=== PATIENT | female | born 1980 | race Caucasian/White ===

== ENCOUNTER 2016-12-09 22:14 | Emergency (ER) | payer MEDICAID, OTHER ==
--- NOTE | 2016-12-09 22:25 | ERNOTE ---
Medical Problem HPI - General Time Seen by Provider: 12/09/16 22:18 Source: patient Exam Limitations: clinical condition - Immun/Allergies/Home Medications Allergies/Adverse Reactions: Allergies No Known Allergies Allergy (Unverified 12/09/16 23:13) Home Medications: HOME MEDICATIONS Unobtainable 12/09/16 [Last Taken Unknown] - History of Present History Narrative: pt dropped off at the ED door by friends due to decreased mental status. Pt has difficulty answering any questions even her date. Speech is very slurred and slow and pt is resistant to any assistance. We were able to get the patient on the ER cot and get a finger stick blood sugar that read >500. Timing: getting worse Severity: severe Review of Systems - Narrative Narrative: Pt unable to give any history - Patient's Past Medical History Patient History - Medical: Diabetes Type 1 Physical Exam - Physical Exam General Appearance: Present: lethargic, irritable Head Exam: Present: normal inspection, no evidence of injury Eye Exam: Normal inspection: bilateral, PERRL: bilateral Ears, Nose, Throat: Present: dry mucous membranes Neck: Present: normal inspection, supple, full range of motion Respiratory: Present: no respiratory distress, no accessory muscle use Cardiovascular/Chest: Present: regular rate, rhythm, no murmur Gastrointestinal/Abdominal: Present: nondistended, soft Back Exam: Present: normal inspection, normal range of motion Extremity Exam: Present: normal range of motion, no edema Neurological Exam: Present: disoriented to time, disoriented to place, disoriented to situation Skin Exam: Present: normal color, warm/dry, other - scattered scabs on arms and legs. Moderate amount of small bruises on extremities. Lymphatic Exam: Present: no adenopathy ED Progress - Results and Orders Patient's Lab Results:: I have reviewed the patient's lab results. - Vital Signs Patient's Vital Signs:: I have reviewed the patient's vital signs. - EKG EKG: NSR EKG read: Interp. by me - Progress/Reassessment Progress Note-Subjective: 12/09/16 23:45 reviewed labs and spoke with Mary Kate SEPULVEDA hospitalist. She will see the patient in the ED. 12/10/16 00:38 We are unable to keep the patient here due to insufficient nursing staff to handle the patient. Spoke with Dr. Glasgow at [facility]. She spoke with the hospitalist and called back saying they would accept the patient. Departure - Departure Clinical Impression: DKA (diabetic ketoacidoses) Qualifiers: Diabetes mellitus type: type 1 Diabetes mellitus complication detail: with coma Qualified Code(s): E10.11 - Type 1 diabetes mellitus with ketoacidosis with coma Disposition: [facility] Condition: Serious
[2016-12-09 22:39] LABS: Hematocrit 42.3 % (37.0-47.0); Mean Corpuscular Hgb Conc 30.7 g/dl (32-36); Mean Platelet Volume 10.9 fl (6.0-9.5); Platelet Count 320 K/mm3 (150-450); Red Blood Count 4.19 M/mm3 (4.2-5.4); Red Cell Distribution Width 13.4 % (11.5-14.0); White Blood Count 34.5 K/mm3 (4.0-10.5)
[2016-12-09] MEDS ORDERED: NORMAL SALINE 1,000 ML IV ONE ×3 (22:39→23:44)
[2016-12-09 22:43] LABS: Total Cells Counted 100
[2016-12-09 22:52] LABS: ALT 35 U/L (19-67); AST 18 U/L (0-48); Albumin * 4.2 gm/dl (3.4-5.0); Alkaline Phosphatase * 184 U/L (50-170); Anion Gap 43.9 mmol/L (6.8-13.8); BUN/Creatinine Ratio 12.5 (9.0-21.6); Bilirubin, Total 0.6 mg/dL (0.0-1.1); Blood Urea Nitrogen 28 mg/dL (3-23); Ca. Corrected For Albumin 8.8 mg/dL (8.4-10.2); Calcium * 9.3 mg/dL (7.9-10.9); Chloride 90 mmol/L (97-106); Potassium 5.9 mmol/L (3.4-4.6); Sodium 133 mmol/L (132-142); Total Protein 7.7 gm/dL (6.2-8.2)
[2016-12-09 22:55] LABS: Glucose * 1010 mg/dL (70-110)
[2016-12-09 23:04] LABS: Neutrophil 72 % (42-75)
[2016-12-09 23:05] LABS: Band 2 % (0-2.0); Lymphocyte 18 % (20-51); Monocyte 8 % (0-9); Neutrophil # 24.8 K/mm3 (1.3-6.0); Platelet Estimate Normal (NORMAL)
[2016-12-09 23:06] LABS: Dohle Bodies 1+; RBC Morphology SEE NO (NORMAL)
[2016-12-09 23:07] LABS: Toxic Granulation 2+
[2016-12-09 23:15] LABS: Urine Appearance Clear; Urine Bacteria 1+; Urine Bilirubin Negative (NEGATIVE); Urine Blood 50 /ul (NEGATIVE); Urine Color Yellow; Urine Ketone Large mg/dL (NEGATIVE); Urine Nitrite Negative (NEGATIVE); Urine Protein Negative (NEGATIVE); Urine RBC 0-5 /hpf (0-5); Urine Specific Gravity 1.015 SP.GR. (1.005-1.010); Urine Urobilinogen Normal (NORMAL); Urine WBC TRACE /hpf (0-5); Urine pH 5.5 pH (5.0-7.0)
[2016-12-09 23:26] LABS: Cocaine Ur Negative (NEGATIVE); Urine Barbiturate Negative (NEGATIVE); Urine Benzodiazepines Negative (NEGATIVE); Urine Opiates Negative (NEGATIVE); Urine PCP Negative (NEGATIVE); Urine THC Negative (NEGATIVE)
[2016-12-09] MEDS ORDERED: INSULIN REGULAR HUMAN REC 100 UNITS in NORMAL SALINE 100 ML IV PRN (23:36)
[2016-12-09] MEDS ORDERED: INSULIN REGULAR, HUMAN 100 UNITS/ML VIAL IV ONE (23:36)
[2016-12-09] MEDS ORDERED: INSULIN REGULAR, HUMAN 100 UNITS/ML VIAL ONE (23:48)
[2016-12-10 00:44] VITALS: BP 105/57
== END 2016-12-10 01:06 | disposition short-term general hospital (02) ==
LOC: ER 22:14
PROC: 4A033R1 Measurement of Arterial Saturation, Peripheral, Percutaneous Approach (ICD-10-PCS; principal; 2016-12-09)
DX: E10.11 Type 1 diabetes mellitus with ketoacidosis with coma (principal)
CPT/HCPCS: 36415; 36600; 71010; 80053; 80307; 81001; 82803; 85025; 93005; 94762; 96365; 96375; 99284; G0481

== ENCOUNTER 2017-02-16 15:49 | Inpatient (IN) | payer OTHER ==
--- NOTE | 2017-02-16 16:36 | ERNOTE ---
Abdominal HPI - General Chief Complaint: Abdominal Pain Time Seen by Provider: 02/16/17 16:25 Source: patient Exam Limitations: no limitations - Immun/Allergies/Home Medications Immunizatons: IMMUNIZATION HX Immunizations Up to Date unknown History of Influenza Vaccine No Hx Pneumococcal Vaccination No Allergies/Adverse Reactions: Allergies No Known Allergies Allergy (Verified 02/16/17 15:57) Home Medications: HOME MEDICATIONS Unobtainable 12/09/16 [Last Taken Unknown] - History of Present Illness Narrative: Patient is a type1 diabetic that has been out of insulin for 3-4 days.She can't explain how that happened. She last smoked meth a week ago, still smoking pot and cigarretttes. She started to vomit about three days ago, no diarrhea, but abdominal pain Timing: constant Quality: moderate, aching - Patient's Past Medical History Patient History - Medical: Diabetes Type 1 Patient History - Cardiac/Respiratory: Asthma Patient History - Cancer: No Hx of Cancer Patient History - Surgical Procedures: No surgical history Patient History - Other: None - Social History Living Situations: home Abuse History: Hx of Substance Use Smoking Status: Current every day smoker Alcohol Use: none Drug Use: none - Immunizations Immunizations Up to Date: - unknown Hx Pneumococcal Vaccination: No History of Influenza Vaccine: No Physical Exam - Physical Exam General Appearance: Present: wd/wn, alert, no apparent distress, thin Head Exam: Present: normal inspection Ears, Nose, Throat: Present: dry mucous membranes Respiratory: Present: no respiratory distress, normal breath sounds, no accessory muscle use, lungs clear Cardiovascular/Chest: Present: regular rate, rhythm, no murmur Gastrointestinal/Abdominal: Present: normal bowel sounds, nontender, nondistended, soft Extremity Exam: Present: no edema Neurological Exam: Present: alert, oriented, normal mood/affect Skin Exam: Present: normal color, warm/dry ED Progress - Results and Orders Patient's Lab Results:: I have reviewed the patient's lab results. - Vital Signs Patient's Vital Signs:: I have reviewed the patient's vital signs. Vital Signs: Vital Signs 02/16/17 15:50 Temperature 36.4 C L Pulse Rate 102 H Respiratory 12 Rate Blood Pressure 121/62 O2 Sat by Pulse 100 Oximetry - X-Ray X-Ray #1 X-Ray: chest - no acute findings Interpretation: Interp. by me X-Ray #2 X-Ray: abdomen - normal gas pattern, a lot of stool Interpretation: Reviewed by me - Progress/Reassessment Chief Complaint: Abdominal Pain Progress Note-Subjective: 02/16/17 17:31 patient feeling slightly better, discussed diagnosis of DKA, asking for ice chips 02/16/17 18:54 repeat fingerstick glucose >500, plasma pending 02/16/17 19:18 patient resting, no vomiting 02/16/17 19:21 message to hospitalist 02/16/17 19:33 discussed with Bernadine (hospitalist DIRECTOR OF COLLECTIONS AND ARCHIVES), okay to admit, will need to check on bed 02/16/17 19:50 okay to admit Departure Clinical Impression: DKA (diabetic ketoacidoses) Qualifiers: Diabetes mellitus type: type 1 Diabetes mellitus complication detail: without coma Qualified Code(s): E10.10 - Type 1 diabetes mellitus with ketoacidosis without coma - Departure Disposition: [facility] Condition: Stable
[2017-02-16] MEDS: NORMAL SALINE 1,000 ML IV ONE ×4 (16:50→23:22)
[2017-02-16 16:51] LABS: Hematocrit 44.9 % (37.0-47.0); Hemoglobin 13.5 gm/dL (12.5-16.0); Mean Cell Volume 105.2 fl (78-100); Mean Corpuscular Hemoglobin 31.6 pg (27-31); Mean Corpuscular Hgb Conc 30.1 g/dl (32-36); Mean Platelet Volume 10.5 fl (6.0-9.5); Platelet Count 437 K/mm3 (150-450); Red Blood Count 4.27 M/mm3 (4.2-5.4); Red Cell Distribution Width 13.8 % (11.5-14.0); White Blood Count 34.2 K/mm3 (4.0-10.5)
[2017-02-16 17:06] LABS: BUN/Creatinine Ratio 19.5 (9.0-21.6); Blood Urea Nitrogen 42 mg/dL (3-23); Chloride 85 mmol/L (97-106); Sodium 130 mmol/L (132-142)
[2017-02-16 17:07] LABS: ALT 84 U/L (19-67); AST 38 U/L (0-48); Albumin * 3.8 gm/dl (3.4-5.0); Alkaline Phosphatase * 186 U/L (50-170); Amylase * 77 U/L (25-115); Bilirubin, Total 0.5 mg/dL (0.0-1.1); Ca. Corrected For Albumin 9.4 mg/dL (8.4-10.2); Calcium * 9.6 mg/dL (7.9-10.9); Lipase 171 U/L (73-393); Total Protein 8.3 gm/dL (6.2-8.2)
[2017-02-16] MEDS ORDERED: ONDANSETRON HCL/PF 2 MG/ML VIAL IV ONE (17:18)
[2017-02-16 17:20] LABS: Total Cells Counted 100
[2017-02-16] MEDS ORDERED: INSULIN REGULAR, HUMAN 100 UNITS/ML VIAL IV ONE (17:26)
[2017-02-16 17:29] LABS: Glucose * 811 mg/dL (70-110)
[2017-02-16] MEDS ORDERED: INSULIN REGULAR, HUMAN 100 UNITS/ML VIAL ONE (17:42)
[2017-02-16 17:43] LABS: Immature Granulocyte 10 (0-1); Lymphocyte 31 % (20-51); Monocyte 5 % (0-9); Neutrophil 54 % (42-75); Neutrophil # 18.5 K/mm3 (1.3-6.0)
[2017-02-16 17:45] LABS: Platelet Estimate Increased (NORMAL); RBC Morphology Normal (NORMAL)
[2017-02-16 17:46] LABS: Dohle Bodies 1+; Toxic Granulation 3+
[2017-02-16] MEDS: INSULIN REGULAR HUMAN REC 100 UNITS in NORMAL SALINE 100 ML IV PRN ×2 (17:54→23:45)
[2017-02-16] MEDS ORDERED: ALBUTEROL SULFATE 2.5 MG/0.5 ML VIAL.NEB IH ONE ×2 (18:15→18:18)
[2017-02-16] MEDS ORDERED: ACETAMINOPHEN 500 MG TABLET PO ONE (18:54)
[2017-02-16] MEDS ORDERED: NORMAL SALINE 1,000 ML IV ONE ×5 (18:54→23:20)
[2017-02-16 19:12] LABS: Urine Bilirubin Negative (NEGATIVE); Urine Blood 250 /ul (NEGATIVE); Urine Ketone Large mg/dL (NEGATIVE); Urine Nitrite Negative (NEGATIVE); Urine Protein 30 mg/dL (NEGATIVE); Urine Specific Gravity 1.025 SP.GR. (1.005-1.010); Urine Urobilinogen Normal (NORMAL); Urine pH 5.5 pH (5.0-7.0)
[2017-02-16 19:23] LABS: Cocaine Ur Negative (NEGATIVE); Urine Barbiturate Negative (NEGATIVE); Urine Benzodiazepines Negative (NEGATIVE); Urine Opiates Negative (NEGATIVE); Urine PCP Negative (NEGATIVE)
[2017-02-16 19:27] LABS: Urine Appearance Clear; Urine Color Yellow; Urine WBC 0-5 /hpf (0-5)
[2017-02-16 19:28] LABS: Urine Bacteria 1+
[2017-02-16 19:43] LABS: Urine THC Positive (NEGATIVE)
[2017-02-16 21:00] LABS: Anion Gap 37.5 mmol/L (6.8-13.8); BUN/Creatinine Ratio 22.2 (9.0-21.6); Calcium * 8.1 mg/dL (7.9-10.9); Estimated Creat Clear 38.9; Phosphorus 6.5 mg/dL (2.2-4.2); Potassium 4.5 mmol/L (3.4-4.6)
[2017-02-16] MEDS ORDERED: ONDANSETRON HCL/PF 2 MG/ML VIAL IV PRN (21:10)
[2017-02-16] MEDS ORDERED: BISACODYL 10 MG SUPP.RECT RC ONE (21:10)
[2017-02-16] MEDS: NICOTINE 21 MG PATC TD SCH (21:13)
--- NOTE | 2017-02-16 21:13 | HP ---
Chief Complaint - Chief Complaint Date of Service: 02/16/17 Time of Service: 20:52 Chief Complaint: DKA, Abdominal pain, vomiting History of Present Illness: 37 years old WF adm to the unit with DKA, dehydration and substance abuse. PMH significant for Diabetes I, substance abuse and hypothyriodism. pt stated she has been out of insulin x1 week and has not been seen by her PCP. She got her last prescription for insulin when she was at the ER. Todays she was having increased nausea, vomiting and abdominal pain so she came to the ER. She denies fever, chills, diarrhea and shortness of breath.In ER Blood glucose 811, acidosis with a venous PH 6.9 and CO2 <5.she tested positive for marijuana. 4unit humulin R given and insulin drip initiated. CXR: No acute cardiopulmonary process. X-ray ABD: Stool retention. Plan of care discussed with pt she verbalized understanding and agree - Patient's Past Medical History Patient History - Medical: Diabetes Type 1 Patient History - Cardiac/Respiratory: Asthma Patient History - Cancer: No Hx of Cancer Patient History - Surgical Procedures: Cholecystectomy, Other - carpal tunnel Patient History - Other: None LMP (females 10-50): unknown - Family History Mother Family History - Medical: No pertinent hx Family History - Cardiac/Respiratory: No pertinent hx Family History - Cancer: History Unknown Father Family History - Cardiac/Respiratory: COPD - Social History Living Situations: home Abuse History: Hx of Substance Use Psych History: No pertinent hx Smoking Status: Current every day smoker Have you smoked in the past 12 months: Yes Do you dip or chew tobacco: No Patient requests Smoking Cessation Consult: No Initiate information on Smoking Cessation: Yes Alcohol Use: occasionally Drug Use: marijuana, meth - Immunizations Immunizations Up to Date: - unknown Hx Pneumococcal Vaccination: No History of Influenza Vaccine: No Review Of Systems (GEN) - Review of Systems Generalized/Overall Review: Present: Malaise, Fatigue EENTM: Present: No Symptoms Reported Cardiac: Present: No Symptoms Reported Abdominal: Present: Nausea, Vomiting, Abdominal Pain Genitourinary: Present: No Symptoms Reported Musculoskeletal: Present: No Symptoms Reported Neurological: Present: No Symptoms Reported Skin: Present: Dryness Endocrine: Present: No Symptoms Reported, Increased Thirst Immunizations: IMMUNIZATION HX Immunizations Up to Date unknown History of Influenza Vaccine No Hx Pneumococcal Vaccination No Allergies/Adverse Reactions: Allergies Allergy/AdvReac Type Severity Reaction Status Date / Time No Known Allergies Allergy Verified 02/16/17 15:57 Home Medications: HOME MEDICATIONS RX: Unobtainable 12/09/16 [Last Taken Unknown] Exam - Exam Vital Signs: Vital Signs - Last Taken Temp 36.5 C 02/16/17 20:37 Pulse 106 H 02/16/17 20:38 Resp 18 02/16/17 20:37 BP 120/74 02/16/17 20:37 Pulse Ox 100 02/16/17 20:37 Constitutional: Present: Alert, Oriented x3, Cooperative, No distress, Looks Older than stated age ENT Exam: Present: hearing grossly normal Eye Exam: bilateral eye: normal inspection Neck: Present: full range of motion Back Exam: Present: normal inspection Breasts: Present: Exam deferred Respiratory: Present: chest non-tender, normal breath sounds, no respiratory distress, decreased breath sounds, No wheezing Cardiovascular/Chest: Present: normal peripheral pulses, no chest tenderness, no edema, tachycardia Peripheral Pulses: dorsalis-pedis (R): 3+, dorsalis-pedis (L): 3+ Abdomen: Present: Normal bowel sounds, soft, nontender, nondistended, no rebound tenderness /Rectal: Present: Exam deferred Extremity: Present: normal range of motion, non-tender, normal inspection, no pedal edema Skin Exam: Present: warm/dry Neurologic: Present: oriented x 3 Appearance: Present: appropriate appearance, disheveled Eye contact: Present: cooperative, good eye contact Thoughts: Present: normal thought pattern, no apparent hallucination Diagnostic Studies: Laboratory Results WBC 34.2 K/mm3 (4.0-10.5) H 02/16/17 16:45 RBC 4.27 M/mm3 (4.2-5.4) 02/16/17 16:45 Hgb 13.5 gm/dL (12.5-16.0) 02/16/17 16:45 Hct 44.9 % (37.0-47.0) 02/16/17 16:45 MCV 105.2 fl (78-100) H 02/16/17 16:45 MCH 31.6 pg (27-31) H 02/16/17 16:45 MCHC 30.1 g/dl (32-36) L 02/16/17 16:45 RDW 13.8 % (11.5-14.0) 02/16/17 16:45 Plt Count 437 K/mm3 (150-450) 02/16/17 16:45 MPV 10.5 fl (6.0-9.5) H 02/16/17 16:45 Neutrophils % (Manual) 54 % (42-75) 02/16/17 16:45 Lymphocytes % (Manual) 31 % (20-51) 02/16/17 16:45 Monocytes % (Manual) 5 % (0-9) 02/16/17 16:45 Immature Granulocytes 10 (0-1) H 02/16/17 16:45 Neutrophils # (Manual) 18.5 K/mm3 (1.3-6.0) H 02/16/17 16:45 Lymphocytes # (Manual) 10.6 k/mm3 (1.5-3.5) H 02/16/17 16:45 Monocytes # (Manual) 1.7 k/mm3 (0.0-1.0) H 02/16/17 16:45 Toxic Granulation 3+ 02/16/17 16:45 Toxic Vacuolation 1+ 02/16/17 16:45 Dohle Bodies 1+ 02/16/17 16:45 Platelet Estimate Increased (NORMAL) H 02/16/17 16:45 RBC Morphology Normal (NORMAL) 02/16/17 16:45 Sparkill Cells 1+ 02/16/17 16:45 VBG pH 6.911 (7.32-7.43) L* 02/16/17 16:45 Sodium 130 mmol/L (132-142) L 02/16/17 16:45 Plasma Sodium 141 mmol/L (130-142) 02/16/17 16:45 Potassium 5.0 mmol/L (3.4-4.6) H 02/16/17 16:45 Chloride 85 mmol/L (97-106) L 02/16/17 16:45 Carbon Dioxide Less than 5.0 mmol/L (24-32.6) L 02/16/17 16:45 Anion Gap 45.0 mmol/L (6.8-13.8) H 02/16/17 16:45 BUN 42 mg/dL (3-23) H 02/16/17 16:45 Creatinine 2.15 mg/dL (0.4-1.4) H 02/16/17 16:45 Est GFR (Non-Af Amer) 28 mL/min (60-130) L 02/16/17 16:45 BUN/Creatinine Ratio 19.5 (9.0-21.6) 02/16/17 16:45 Random Glucose 810 mg/dL (70-110) H* 02/16/17 18:52 Calcium 9.6 mg/dL (7.9-10.9) 02/16/17 16:45 Calcium Adj for Albumin 9.4 mg/dL (8.4-10.2) 02/16/17 16:45 Total Bilirubin 0.5 mg/dL (0.0-1.1) 02/16/17 16:45 AST 38 U/L (0-48) 02/16/17 16:45 ALT 84 U/L (19-67) H 02/16/17 16:45 Alkaline Phosphatase 186 U/L (50-170) H 02/16/17 16:45 Total Protein 8.3 gm/dL (6.2-8.2) H 02/16/17 16:45 Albumin 3.8 gm/dl (3.4-5.0) 02/16/17 16:45 Amylase 77 U/L (25-115) 02/16/17 16:45 Lipase 171 U/L (73-393) 02/16/17 16:45 Serum HCG, Qual Negative (NEGATIVE) 02/16/17 16:45 Urine Color Yellow 02/16/17 18:52 Urine Appearance Clear 02/16/17 18:52 Urine pH 5.5 pH (5.0-7.0) 02/16/17 18:52 Ur Specific Golden 1.025 SP.GR. (1.005-1.010) 02/16/17 18:52 Urine Protein 30 mg/dL (NEGATIVE) H 02/16/17 18:52 Urine Glucose (UA) >=1000 mg/dL (NEGATIVE) H 02/16/17 18:52 Urine Ketones Large mg/dL (NEGATIVE) 02/16/17 18:52 Urine Blood 250 /ul (NEGATIVE) H 02/16/17 18:52 Urine Nitrate Negative (NEGATIVE) 02/16/17 18:52 Urine Bilirubin Negative mg/dl (NEGATIVE) 02/16/17 18:52 Prot Sulfosalicylic Acd Negative mg/dL (0) 02/16/17 18:52 Urine Urobilinogen Normal EU/dl (NORMAL) 02/16/17 18:52 Ur Leukocyte Esterase Negative /ul (NEGATIVE) 02/16/17 18:52 Urine RBC 10-25 /hpf (0-5) H 02/16/17 18:52 Urine WBC 0-5 /hpf (0-5) 02/16/17 18:52 Ur Epithelial Cells >25 /hpf (0-5) H 02/16/17 18:52 Urine Bacteria 1+ (NONE) H 02/16/17 18:52 Hyaline Casts 10-25 /LPF (NONE) H 02/16/17 18:52 Urine Culture Comments No culture indicated 02/16/17 18:52 Urine Opiates Screen Negative (NEGATIVE) 02/16/17 18:52 Barbiturate Screen Negative (NEGATIVE) 02/16/17 18:52 Ur Phencyclidine Scrn Negative (NEGATIVE) 02/16/17 18:52 Urine Amphetamine Negative (NEGATIVE) 02/16/17 18:52 U Benzodiazepines Scrn Negative (NEGATIVE) 02/16/17 18:52 Urine Cocaine Screen Negative (NEGATIVE) 02/16/17 18:52 Urine Marijuana (THC) Positive (NEGATIVE) H 02/16/17 18:52 Ethyl Alcohol Less than 3.0 mg/dL (0.0-10.0) 02/16/17 16:45 Serum Ketones Positive - 30mg/dl (NEGATIVE) H 02/16/17 16:45 X-Ray ABD: Stool retention with non-obstruction bowel gas pattern Assessment/Plan - Narrative Narrative: Diabetic ketoacidosis- likely due to noncompliance pt stated she has been out of insulin x 1 week She had her last prescription from the ER and has not been following up with PCP. In ER BG 811--->810---->652 4Unit insulin bolus and Insulin drip started Aggressive IV fluid with Ns 0.9% 1L until adequate diuresis to correct 50% of the volume deficit. 2L NS bolus given in ER, will give additional IVF On adm PH 6.9, co2 <5, Bun/Cre 42/2.15, Na+130, K+5, serum ketones 30mg/dl, WBC 34 and A1c 13 Monitor BMP Q2hr, neuro check Mag,phos q6hrs pending Keep NPO for now and Monitor weight and strict I/O Diabetes type I Plan same as above Dehydration Continue with IVF resuscitation On adm BUn/Cre 42/2.15 Substance abuse pt stated she smoke marijuana daily and urine + for drugs Last used meth 4 days ago, but typically uses 4 times weekly. Smoking cessation edu and nicotine patch Asthma May resume home albuterol constipation Dulcolax suppository Code status: Full GI ppx:protonix VTE ppx: Ambulate and SCD Time 50 minutes, previous records reviewed and case discussed with Dr mitchell - Assessment/Plan (1) Substance abuse Problem: Chronic (2) DKA (diabetic ketoacidoses) Problem: Acute Qualifiers: Diabetes mellitus type: type 1 Diabetes mellitus complication detail: without coma Qualified Code(s): E10.10 - Type 1 diabetes mellitus with ketoacidosis without coma (3) Diabetes 1.5, managed as type 1 Problem: Chronic (4) Hypothyroidism Problem: Chronic (5) Constipation Problem: Acute
[2017-02-16] MEDS: REMOVE PATCH 1 PATCH PATCH TP SCH (21:14)
[2017-02-16 23:09] LABS: Anion Gap 34.7 mmol/L (6.8-13.8); Calcium * 7.6 mg/dL (7.9-10.9); Carbon Dioxide 6.9 mmol/L (24-32.6); Estimated Creat Clear 42.5; Potassium 4.6 mmol/L (3.4-4.6)
[2017-02-17 01:19] LABS: BUN/Creatinine Ratio 18.3 (9.0-21.6); Calcium * 7.4 mg/dL (7.9-10.9); Carbon Dioxide 7.8 mmol/L (24-32.6); Estimated Creat Clear 44.8; Potassium 4.8 mmol/L (3.4-4.6)
[2017-02-17] MEDS ORDERED: NORMAL SALINE 1,000 ML IV PRN (01:27)
[2017-02-17 03:08] LABS: Anion Gap 33.9 mmol/L (6.8-13.8); BUN/Creatinine Ratio 17.2 (9.0-21.6); Calcium * 7.5 mg/dL (7.9-10.9); Estimated Creat Clear 45.1; Potassium 4.9 mmol/L (3.4-4.6)
[2017-02-17 04:55] LABS: Hemoglobin 11.7 gm/dL (12.5-16.0); Mean Cell Volume 98.6 fl (78-100); Mean Corpuscular Hemoglobin 32.1 pg (27-31); Mean Corpuscular Hgb Conc 32.5 g/dl (32-36); Mean Platelet Volume 9.8 fl (6.0-9.5); Platelet Count 289 K/mm3 (150-450); Red Blood Count 3.65 M/mm3 (4.2-5.4); Red Cell Distribution Width 13.4 % (11.5-14.0); White Blood Count 26.1 K/mm3 (4.0-10.5)
[2017-02-17 05:08] LABS: Anion Gap 32.5 mmol/L (6.8-13.8); BUN/Creatinine Ratio 18.2 (9.0-21.6); Calcium * 7.4 mg/dL (7.9-10.9); Carbon Dioxide 5.9 mmol/L (24-32.6); Estimated Creat Clear 49.7; Magnesium 1.6 mg/dL (1.2-2.8); Phosphorus 3.4 mg/dL (2.2-4.2); Potassium 4.4 mmol/L (3.4-4.6)
[2017-02-17 05:12] LABS: Total Cells Counted 100
[2017-02-17] MEDS: NORMAL SALINE 1,000 ML IV PRN ×2 (05:36→09:56)
[2017-02-17 05:41] LABS: Band 3 % (0-2.0); Immature Granulocyte 1 (0-1); Lymphocyte 13 % (20-51); Monocyte 6 % (0-9); Neutrophil 77 % (42-75); Neutrophil # 20.1 K/mm3 (1.3-6.0); Platelet Estimate Normal (NORMAL)
[2017-02-17 05:43] LABS: RBC Morphology Normal (NORMAL)
[2017-02-17 05:44] LABS: Dohle Bodies 1+; Toxic Granulation 2+
--- NOTE | 2017-02-17 06:57 | PN ---
Subjective - Date and Time Seen Date: 02/17/17 Time: 06:53 Subjective Narrative: patient seen today AOX3 no acute distress, stated she urinated and eat some ice chips only. However male visitor at the bedside gave her food overnight.Plan of care discussed with pt she verbalized understanding and agree. Objective - Review of Systems Generalized/Overall Review: Reports: No Symptoms Reported EENTM: Reports: No Symptoms Reported Respiratory: Reports: No Symptoms Reported Cardiac: Reports: No Symptoms Reported Abdominal: Reports: No Symptoms Reported Genitourinary Symptoms: Reports: No Symptoms Reported Musculoskeletal Complaints: Reports: No Symptoms Reported Neurological: Reports: No Symptoms Reported Skin: Reports: No Symptoms Reported Endocrine: Reports: Increased Thirst - Vitals Vitals: Last Vital Signs Temp 36.4 C L 02/17/17 06:00 Pulse 100 02/17/17 06:44 Resp 16 02/17/17 06:00 BP 106/60 02/17/17 06:00 Pulse Ox 98 02/17/17 06:00 - Abnormal Lab Findings Abnormal Lab Findings: Abnormal Lab Results 02/16/17 02/16/17 02/16/17 Range/Units 20:40 20:40 21:50 WBC (4.0-10.5) K/mm3 RBC (4.2-5.4) M/mm3 Hgb (12.5-16.0) gm/dL Hct (37.0-47.0) % MCH (27-31) pg MPV (6.0-9.5) fl Neutrophils % (Manual) (42-75) % Band Neuts % (Manual) (0-2.0) % Lymphocytes % (Manual) (20-51) % Neutrophils # (Manual) (1.3-6.0) K/mm3 Monocytes # (Manual) (0.0-1.0) k/mm3 Plasma Sodium (130-142) mmol/L Potassium (3.4-4.6) mmol/L Chloride 94 L (97-106) mmol/L Carbon Dioxide 6.0 L (24-32.6) mmol/L Anion Gap 37.5 H (6.8-13.8) mmol/L BUN 42 H (3-23) mg/dL Creatinine 1.89 H (0.4-1.4) mg/dL Est GFR (Non-Af Amer) 32 L (60-130) mL/min BUN/Creatinine Ratio 22.2 H (9.0-21.6) Random Glucose 652 H* 613 H* (70-110) mg/dL Hemoglobin A1c 13.0 H (4.00-6.0) % Calcium (7.9-10.9) mg/dL Phosphorus 6.5 H (2.2-4.2) mg/dL 02/16/17 02/17/17 02/17/17 Range/Units 22:45 00:40 02:55 WBC (4.0-10.5) K/mm3 RBC (4.2-5.4) M/mm3 Hgb (12.5-16.0) gm/dL Hct (37.0-47.0) % MCH (27-31) pg MPV (6.0-9.5) fl Neutrophils % (Manual) (42-75) % Band Neuts % (Manual) (0-2.0) % Lymphocytes % (Manual) (20-51) % Neutrophils # (Manual) (1.3-6.0) K/mm3 Monocytes # (Manual) (0.0-1.0) k/mm3 Plasma Sodium 143 H 146 H 147 H (130-142) mmol/L Potassium 4.8 H 4.9 H (3.4-4.6) mmol/L Chloride (97-106) mmol/L Carbon Dioxide 6.9 L 7.8 L 7.0 L (24-32.6) mmol/L Anion Gap 34.7 H 33.0 H 33.9 H (6.8-13.8) mmol/L BUN 38 H 30 H 28 H (3-23) mg/dL Creatinine 1.73 H 1.64 H 1.63 H (0.4-1.4) mg/dL Est GFR (Non-Af Amer) 36 L 38 L 38 L (60-130) mL/min BUN/Creatinine Ratio 22.0 H (9.0-21.6) Random Glucose 530 H* 474 H 474 H (70-110) mg/dL Hemoglobin A1c (4.00-6.0) % Calcium 7.6 L 7.4 L 7.5 L (7.9-10.9) mg/dL Phosphorus (2.2-4.2) mg/dL 02/17/17 02/17/17 Range/Units 04:50 04:50 WBC 26.1 H D (4.0-10.5) K/mm3 RBC 3.65 L (4.2-5.4) M/mm3 Hgb 11.7 L (12.5-16.0) gm/dL Hct 36.0 L (37.0-47.0) % MCH 32.1 H (27-31) pg MPV 9.8 H (6.0-9.5) fl Neutrophils % (Manual) 77 H (42-75) % Band Neuts % (Manual) 3 H (0-2.0) % Lymphocytes % (Manual) 13 L (20-51) % Neutrophils # (Manual) 20.1 H (1.3-6.0) K/mm3 Monocytes # (Manual) 1.6 H (0.0-1.0) k/mm3 Plasma Sodium 145 H (130-142) mmol/L Potassium (3.4-4.6) mmol/L Chloride (97-106) mmol/L Carbon Dioxide 5.9 L (24-32.6) mmol/L Anion Gap 32.5 H (6.8-13.8) mmol/L BUN 27 H (3-23) mg/dL Creatinine 1.48 H (0.4-1.4) mg/dL Est GFR (Non-Af Amer) 43 L (60-130) mL/min BUN/Creatinine Ratio (9.0-21.6) Random Glucose 450 H (70-110) mg/dL Hemoglobin A1c (4.00-6.0) % Calcium 7.4 L (7.9-10.9) mg/dL Phosphorus (2.2-4.2) mg/dL - EKG/Xray Findings EKG: NSR - Exam Constitutional: Present: Alert, Oriented x3, Cooperative, No distress ENT Exam: Present: hearing grossly normal, dry mucous membranes, other - poor dentition Neck: Present: full range of motion Breasts: Present: Exam deferred Respiratory: Present: chest non-tender, no respiratory distress, decreased breath sounds Cardiovascular/Chest: Present: regular rate, rhythm, no chest tenderness, no edema, no gallop, tachycardia Abdomen: Present: Normal bowel sounds, soft, nontender, nondistended, no rebound tenderness Extremity: Present: normal range of motion, non-tender Skin Exam: Present: warm/dry Neurologic: Present: oriented x 3 Appearance: Present: appropriate appearance Eye contact: Present: cooperative Thoughts: Present: normal thought pattern Assessment/Plan Plan Narrative: Diabetic ketoacidosis- likely due to noncompliance Pt was out of insulin x 1 week. pharmacy she provided haven't fill any medications for her in several months. She had her last prescription from the ER and has not been following up with PCP. on adm BG 811--->810---->652--->474---->474--->450 4Unit insulin bolus and Insulin drip started Aggressive IV fluid with Ns 0.9% On adm PH 6.9, co2 <5, Bun/Cre 42/2.15, Na+130, K+5, serum ketones 30mg/dl, WBC 34 and A1c 13 Monitor BMP Q2hr, neuro check Mag,phos noted Keep NPO for now and Monitor weight and strict I/O Diabetes type I Plan same as above Dehydration- improving Continue with IVF resuscitation On adm BUn/Cre 42/2.15---->27/1.48 Substance abuse pt stated she smoke marijuana daily and urine + for drugs Last used meth 4 days ago, but typically uses 4 times weekly. Smoking cessation edu and nicotine patch Asthma May resume home albuterol constipation Dulcolax suppository Code status: Full GI ppx:protonix VTE ppx: Ambulate and SCD Time 20 minutes and case discussed with Dr mitchell - Problems/Diagnosis (1) Substance abuse Problem: Chronic (2) DKA (diabetic ketoacidoses) Problem: Acute Qualifiers: Diabetes mellitus type: type 1 Diabetes mellitus complication detail: without coma Qualified Code(s): E10.10 - Type 1 diabetes mellitus with ketoacidosis without coma (3) Diabetes 1.5, managed as type 1 Problem: Chronic (4) Hypothyroidism Problem: Chronic (5) Constipation Problem: Acute
[2017-02-17] MEDS: INSULIN REGULAR HUMAN REC 100 UNITS in NORMAL SALINE 100 ML IV PRN ×2 (07:11→21:45)
[2017-02-17 07:42] LABS: Anion Gap 29.5 mmol/L (6.8-13.8); BUN/Creatinine Ratio 15.2 (9.0-21.6); Calcium * 7.4 mg/dL (7.9-10.9); Carbon Dioxide 9.6 mmol/L (24-32.6); Estimated Creat Clear 48.7; Potassium 4.1 mmol/L (3.4-4.6)
[2017-02-17] MEDS ORDERED: POTASSIUM CHLORIDE 10 MEQ in DEXTROSE 5%-0.5 NORMAL SALINE 1,000 ML IV PRN (13:13)
[2017-02-17] MEDS: POTASSIUM CHLORIDE 10 MEQ in DEXTROSE 5%-0.5 NORMAL SALINE 1,000 ML IV SCH ×2 (13:46→22:54)
[2017-02-17 13:49] LABS: Hemoglobin 11.3 gm/dL (12.5-16.0); Mean Cell Volume 97.1 fl (78-100); Mean Corpuscular Hemoglobin 32.3 pg (27-31); Mean Corpuscular Hgb Conc 33.2 g/dl (32-36); Mean Platelet Volume 9.4 fl (6.0-9.5); Platelet Count 276 K/mm3 (150-450); Red Cell Distribution Width 13.9 % (11.5-14.0); White Blood Count 23.6 K/mm3 (4.0-10.5)
[2017-02-17 13:52] LABS: Total Cells Counted 100
[2017-02-17 13:59] LABS: Anion Gap 27.3 mmol/L (6.8-13.8); BUN/Creatinine Ratio 14.2 (9.0-21.6); Calcium * 7.6 mg/dL (7.9-10.9); Carbon Dioxide 10.6 mmol/L (24-32.6); Estimated Creat Clear 54.9; Magnesium 1.8 mg/dL (1.2-2.8); Phosphorus 2.6 mg/dL (2.2-4.2); Potassium 3.9 mmol/L (3.4-4.6)
[2017-02-17 14:48] LABS: Atypical (Reactive) Lymph 6 % (0-2); Band 6 % (0-2.0); Immature Granulocyte 2 (0-1); Lymphocyte 10 % (20-51); Monocyte 3 % (0-9); Neutrophil 73 % (42-75); Neutrophil # 17.2 K/mm3 (1.3-6.0); Platelet Estimate Normal (NORMAL)
[2017-02-17 14:52] LABS: Dohle Bodies 1+; RBC Morphology Normal (NORMAL); Toxic Granulation 2+
[2017-02-17 17:33] LABS: Anion Gap 22.7 mmol/L (6.8-13.8); BUN/Creatinine Ratio 11.6 (9.0-21.6); Calcium * 7.6 mg/dL (7.9-10.9); Carbon Dioxide 13.1 mmol/L (24-32.6); Estimated Creat Clear 53.3; Potassium 3.8 mmol/L (3.4-4.6)
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
[2017-02-17] MEDS: NICOTINE 21 MG PATC TD SCH (21:02)
[2017-02-17] MEDS: REMOVE PATCH 1 PATCH PATCH TP SCH (21:04)
[2017-02-17 22:48] LABS: Anion Gap 12.7 mmol/L (6.8-13.8); BUN/Creatinine Ratio 12.3 (9.0-21.6); Calcium * 7.7 mg/dL (7.9-10.9); Carbon Dioxide 20.3 mmol/L (24-32.6); Estimated Creat Clear 64.5
[2017-02-17] MEDS ORDERED: ASPIRIN/ACETAMINOPHEN/CAFFEINE 1 TAB TAB PO PRN (23:02)
[2017-02-17] MEDS ORDERED: clonazePAM 0.5 MG TABLET PO PRN (23:02)
[2017-02-17] MEDS ORDERED: ALBUTEROL SULFATE 200 PUFF INHALER IH PRN (23:02)
[2017-02-17] MEDS ORDERED: POTASSIUM CHLORIDE 40 MEQ/15 ML BTL PO ONE (23:02)
[2017-02-17] MEDS: POTASSIUM CHLORIDE 20 MEQ in DEXTROSE 5%-0.5 NORMAL SALINE 990 ML IV SCH (23:36)
[2017-02-18] MEDS ORDERED: INSULIN GLARGINE,HUM.REC.ANLOG 100 UNITS/ML VIAL SC SCH ×2 (05:00→09:00)
[2017-02-18] MEDS ORDERED: INSULIN LISPRO 100 UNITS/ML VIAL SC SCH ×4 (05:00→21:30)
[2017-02-18 05:46] LABS: Hematocrit 31.7 % (37.0-47.0); Hemoglobin 10.9 gm/dL (12.5-16.0); Mean Corpuscular Hgb Conc 34.4 g/dl (32-36); Mean Platelet Volume 9.5 fl (6.0-9.5); Neutrophil # 8.6 K/mm3 (1.3-6.0); Neutrophil % 72.2 % (42-75.0); Platelet Count 248 K/mm3 (150-450); Red Blood Count 3.41 M/mm3 (4.2-5.4); Red Cell Distribution Width 13.8 % (11.5-14.0); White Blood Count 11.9 K/mm3 (4.0-10.5)
[2017-02-18] MEDS ORDERED: INSULIN LISPRO 100 UNITS/ML VIAL ONE (05:56)
[2017-02-18] MEDS ORDERED: INSULIN GLARGINE,HUM.REC.ANLOG 100 UNITS/ML VIAL SC ONE (06:02)
[2017-02-18] MEDS: INSULIN GLARGINE,HUM.REC.ANLOG 100 UNITS/ML VIAL SC SCH ×2 (06:04→09:27)
[2017-02-18 06:05] LABS: BUN/Creatinine Ratio 11.1 (9.0-21.6); Estimated Creat Clear 74.2
[2017-02-18 06:06] LABS: Anion Gap 13.3 mmol/L (6.8-13.8); Calcium * 7.8 mg/dL (7.9-10.9); Carbon Dioxide 21.8 mmol/L (24-32.6); Potassium 3.1 mmol/L (3.4-4.6)
--- NOTE | 2017-02-18 06:19 | PN ---
Subjective - Date and Time Seen Date: 02/18/17 Time: 06:16 Subjective Narrative: Pt examined this am. Was febrile once in the night with temp of 38.3. Is finally closing on AG and HCO3. No other acute events according to nursing. Seen and evaluated by on 02/17. Objective - Vitals Vitals: Last Vital Signs Temp 36.8 C 02/18/17 03:00 Pulse 94 02/18/17 05:00 Resp 16 02/17/17 23:00 BP 107/55 02/18/17 05:00 Pulse Ox 97 02/18/17 05:00 - Abnormal Lab Findings Abnormal Lab Findings: Abnormal Lab Results 02/17/17 02/17/17 02/17/17 Range/Units 07:30 07:41 13:38 WBC 23.6 H (4.0-10.5) K/mm3 RBC 3.50 L (4.2-5.4) M/mm3 Hgb 11.3 L (12.5-16.0) gm/dL Hct 34.0 L (37.0-47.0) % MCH 32.3 H (27-31) pg Immature Gran % (Auto) (0.001-0.429) % Immature Gran # (Auto) (0.000-0.0310) K/mm3 Band Neuts % (Manual) 6 H (0-2.0) % Lymphocytes % (20-51) % Lymphocytes % (Manual) 10 L (20-51) % Immature Granulocytes 2 H (0-1) Neutrophils # (1.3-6.0) K/mm3 Neutrophils # (Manual) 17.2 H (1.3-6.0) K/mm3 Atypic/Reactive Lymphs 6 H (0-2) % pCO2 17.7 L* (32.0-45.0) mmHg HCO3 6.9 L (21.0-28.0) mmol/L Total CO2 7.4 L (19.0-24.0) mmol/L Base Excess -18.9 L (-2.0-3.0) mmol/L ABG pH 7.21 L (7.35-7.45) Sodium (132-142) mmol/L Plasma Sodium 147 H (130-142) mmol/L Potassium (3.4-4.6) mmol/L Chloride 107 H (97-106) mmol/L Carbon Dioxide 9.6 L (24-32.6) mmol/L Anion Gap 29.5 H (6.8-13.8) mmol/L Creatinine 1.51 H (0.4-1.4) mg/dL Est GFR (Non-Af Amer) 42 L (60-130) mL/min Random Glucose 399 H (70-110) mg/dL Calcium 7.4 L (7.9-10.9) mg/dL 02/17/17 02/17/17 02/17/17 Range/Units 13:38 17:15 22:30 WBC (4.0-10.5) K/mm3 RBC (4.2-5.4) M/mm3 Hgb (12.5-16.0) gm/dL Hct (37.0-47.0) % MCH (27-31) pg Immature Gran % (Auto) (0.001-0.429) % Immature Gran # (Auto) (0.000-0.0310) K/mm3 Band Neuts % (Manual) (0-2.0) % Lymphocytes % (20-51) % Lymphocytes % (Manual) (20-51) % Immature Granulocytes (0-1) Neutrophils # (1.3-6.0) K/mm3 Neutrophils # (Manual) (1.3-6.0) K/mm3 Atypic/Reactive Lymphs (0-2) % pCO2 (32.0-45.0) mmHg HCO3 (21.0-28.0) mmol/L Total CO2 (19.0-24.0) mmol/L Base Excess (-2.0-3.0) mmol/L ABG pH (7.35-7.45) Sodium (132-142) mmol/L Plasma Sodium 145 H 144 H (130-142) mmol/L Potassium 3.0 L D (3.4-4.6) mmol/L Chloride 108 H 109 H 110 H (97-106) mmol/L Carbon Dioxide 10.6 L 13.1 L 20.3 L (24-32.6) mmol/L Anion Gap 27.3 H 22.7 H (6.8-13.8) mmol/L Creatinine (0.4-1.4) mg/dL Est GFR (Non-Af Amer) 48 L 46 L 58 L D (60-130) mL/min Random Glucose 310 H 301 H 218 H (70-110) mg/dL Calcium 7.6 L 7.6 L 7.7 L (7.9-10.9) mg/dL 02/18/17 02/18/17 Range/Units 05:43 05:43 WBC 11.9 H D (4.0-10.5) K/mm3 RBC 3.41 L (4.2-5.4) M/mm3 Hgb 10.9 L (12.5-16.0) gm/dL Hct 31.7 L (37.0-47.0) % MCH 32.0 H (27-31) pg Immature Gran % (Auto) 2.40 H (0.001-0.429) % Immature Gran # (Auto) 0.29 H (0.000-0.0310) K/mm3 Band Neuts % (Manual) (0-2.0) % Lymphocytes % 16.4 L (20-51) % Lymphocytes % (Manual) (20-51) % Immature Granulocytes (0-1) Neutrophils # 8.6 H (1.3-6.0) K/mm3 Neutrophils # (Manual) (1.3-6.0) K/mm3 Atypic/Reactive Lymphs (0-2) % pCO2 (32.0-45.0) mmHg HCO3 (21.0-28.0) mmol/L Total CO2 (19.0-24.0) mmol/L Base Excess (-2.0-3.0) mmol/L ABG pH (7.35-7.45) Sodium 143 H (132-142) mmol/L Plasma Sodium 143 H (130-142) mmol/L Potassium 3.1 L (3.4-4.6) mmol/L Chloride 111 H (97-106) mmol/L Carbon Dioxide 21.8 L (24-32.6) mmol/L Anion Gap (6.8-13.8) mmol/L Creatinine (0.4-1.4) mg/dL Est GFR (Non-Af Amer) (60-130) mL/min Random Glucose 115 H D (70-110) mg/dL Calcium 7.8 L (7.9-10.9) mg/dL - Exam Constitutional: Present: Alert, Oriented x3, Cooperative, No distress ENT Exam: Present: other - Missing teeth on both lower and upper gums Neck: Present: non-tender, full range of motion Breasts: Present: Exam deferred Respiratory: Present: lungs clear, No rales, No wheezing Cardiovascular/Chest: Present: normal peripheral pulses, regular rate, rhythm, no chest tenderness, no edema Abdomen: Present: Normal bowel sounds, soft, nontender /Rectal: Present: Exam deferred Extremity: Present: normal range of motion, non-tender, normal inspection, no pedal edema Skin Exam: Present: warm/dry, no cyanosis Lymphatic: Present: no adenopathy Neurologic: Present: no motor/sensory deficits, alert, oriented x 3 Appearance: Present: appropriate appearance, appropriate insight Eye contact: Present: cooperative, good eye contact, decreased rate of speech Thoughts: Present: no apparent hallucination Assessment/Plan - Problems/Diagnosis (1) DKA (diabetic ketoacidoses) Problem: Acute Qualifiers: Diabetes mellitus type: type 1 Diabetes mellitus complication detail: without coma Qualified Code(s): E10.10 - Type 1 diabetes mellitus with ketoacidosis without coma Narrative: Bolused with IVF and started on insulin drip. Is closing in on AG and CO2. Will now transition to SQ insulin and stop the insulin gtt 1-2 hours later. Laboratory Tests 02/17/17 02/17/17 02/17/17 13:38 17:15 22:30 Carbon Dioxide 20.3 L Anion Gap 27.3 H 22.7 H 12.7 02/18/17 05:43 Carbon Dioxide 21.8 L Anion Gap 13.3 (2) Hypokalemia Problem: Acute Narrative: Will give additional oral replenishment of 80meq today. BMP in am. (3) Diabetes 1.5, managed as type 1 Problem: Chronic Narrative: Will resume carb consistent and ACHS accu- checks. Due to non- compliance with insulin regimen and likelihood of increased sensitivity to insulin, will cut back by 50% on SQ home doses. Initial doses; Lantus 25 units daily, and Humalog 8 units t.i.d (4) Chemical dependency Problem: Chronic Narrative: Psychiatry consulted and saw pt yesterday. Placement to Psychiatric unit recommended. (5) Hypothyroidism Problem: Chronic
[2017-02-18] MEDS ORDERED: POTASSIUM CHLORIDE 20 MEQ TABLET.SA PO ONE ×2 (06:37→12:00)
[2017-02-18] MEDS ORDERED: ALBUTEROL SULFATE 2.5 MG/0.5 ML VIAL.NEB IH PRN (07:19)
[2017-02-18] MEDS ORDERED: LEVOTHYROXINE SODIUM 100 MCG TABLET ONE (07:22)
[2017-02-18] MEDS ORDERED: LEVOTHYROXINE SODIUM 25 MCG TABLET ONE (07:23)
[2017-02-18] MEDS: LEVOTHYROXINE SODIUM 125 MCG TABLET PO SCH (07:29)
[2017-02-18] MEDS: CITALOPRAM HYDROBROMIDE 20 MG TABLET PO SCH (09:06)
[2017-02-18] MEDS: POTASSIUM CHLORIDE 20 MEQ in DEXTROSE 5%-0.5 NORMAL SALINE 990 ML IV SCH ×2 (09:09→18:57)
[2017-02-18] MEDS: INSULIN LISPRO 100 UNITS/ML VIAL SC SCH ×3 (12:06→17:28)
[2017-02-18 12:40] LABS: Cocaine Ur Negative (NEGATIVE); Urine Barbiturate Negative (NEGATIVE); Urine Benzodiazepines Negative (NEGATIVE); Urine Opiates Negative (NEGATIVE); Urine PCP Negative (NEGATIVE)
[2017-02-18 12:48] LABS: Urine THC Positive (NEGATIVE)
[2017-02-18] MEDS: REMOVE PATCH 1 PATCH PATCH TP SCH (20:58)
[2017-02-18] MEDS: NICOTINE 21 MG PATC TD SCH (20:58)
[2017-02-18] MEDS: DOCUSATE SODIUM 100 MG CAPSULE PO SCH (21:27)
[2017-02-19] MEDS: POTASSIUM CHLORIDE 20 MEQ in DEXTROSE 5%-0.5 NORMAL SALINE 990 ML IV SCH (05:02)
[2017-02-19 06:07] LABS: Hematocrit 35.4 % (37.0-47.0); Hemoglobin 12.1 gm/dL (12.5-16.0); Mean Cell Volume 91.7 fl (78-100); Mean Corpuscular Hemoglobin 31.3 pg (27-31); Mean Corpuscular Hgb Conc 34.2 g/dl (32-36); Mean Platelet Volume 9.3 fl (6.0-9.5); Neutrophil # 3.5 K/mm3 (1.3-6.0); Platelet Count 227 K/mm3 (150-450); Red Blood Count 3.86 M/mm3 (4.2-5.4)
[2017-02-19 06:18] LABS: Anion Gap 10.4 mmol/L (6.8-13.8); BUN/Creatinine Ratio 8.2 (9.0-21.6); Calcium * 8.8 mg/dL (7.9-10.9); Carbon Dioxide 26.7 mmol/L (24-32.6); Estimated Creat Clear 86.5; Potassium 4.1 mmol/L (3.4-4.6)
[2017-02-19] MEDS: LEVOTHYROXINE SODIUM 125 MCG TABLET PO SCH (07:09)
[2017-02-19] MEDS: INSULIN LISPRO 100 UNITS/ML VIAL SC SCH ×4 (07:10→12:00)
[2017-02-19] MEDS ORDERED: INSULIN GLARGINE,HUM.REC.ANLOG 100 UNITS/ML VIAL SC SCH (07:11)
[2017-02-19] MEDS: CITALOPRAM HYDROBROMIDE 20 MG TABLET PO SCH (08:38)
[2017-02-19] MEDS: DOCUSATE SODIUM 100 MG CAPSULE PO SCH (08:44)
[2017-02-19 12:31] VITALS: BP 127/84
--- NOTE | 2017-02-19 12:48 | DS ---
(1) DKA (diabetic ketoacidoses) Diagnosis(s): due to noncompliance Problem: Resolved Qualifiers: Diabetes mellitus type: type 1 Diabetes mellitus complication detail: without coma Qualified Code(s): E10.10 - Type 1 diabetes mellitus with ketoacidosis without coma (2) Diabetes mellitus type 1 Problem: Chronic (3) Substance abuse Diagnosis(s): Poysubstance. Problem: Chronic (4) Constipation Problem: Acute (5) Hypokalemia Problem: Resolved (6) Hypothyroidism Problem: Chronic Description of Stay: Anthony Bolden, is a 37 years old WF adm to the unit with DKA, dehydration and substance abuse on 02/16/17.. PMH significant for Diabetes I, substance abuse and hypothyriodism. pt stated she has been out of insulin x1 week and has not been seen by her PCP. She got her last prescription for insulin when she was at the ER. On the day of admission, she was having increased nausea, vomiting and abdominal pain so she came to the ER. She denied fever, chills, diarrhea and shortness of breath.In ER Blood glucose 811, acidosis with a venous PH 6.9 and CO2 <5.she tested positive for marijuana. 4 unit humulin R given and insulin drip initiated. CXR: No acute cardiopulmonary process. X-ray ABD: Stool retention. Plan of care discussed with pt she verbalized understanding and agreed. She was started on IV insulin drip and given aggressive IVF. Her electrolytes were monitored and corrected. Her Anion gap closed and she was started on her Humalog and Lantus. Psych consult was done and he recommended initially in patient psych placement. I was able to talk to him today and he says it is safe to send the patient home and to follow up with him next week. The patient was educated on the importance of following her diabetic medication and diabetic diet. She was also told to cut her drug habit and it is important to follow up with Dr. Costa. Procedures Performed: none Discharge Disposition: Home self care Disposition: Home self-care Condition: Stable Discharge Activity: Activity as tolerated Discharge Diet: Consistent carbs Additional Patient Instructions (free text): Follow up with Dr. Costa next week 03/09/17 at 3pm. She may follow up with ct x 1 and should establish with a PCP and endocrinology in [facility] or [facility]. Prescriptions (Any new or edited meds): Docusate Sodium [Colace] 100 mg PO DAILY #30 capsule Complete Home Medications List: Complete Home Medication List: Albuterol Sulfate [Ventolin HFA] 1 puff IH QID PRN 02/17/17 Aspirin/Acetaminophen/Caffeine [Excedrin Extra Strength] 2 tab PO Q6H PRN Citalopram Hydrobromide [Citalopram HBr] 40 mg PO DAILY 02/17/17 Insulin Glargine,Hum.rec.anlog [Lantus] 25 units SC QAM 02/17/17 Insulin Lispro [Humalog] 8 units SQ TID 02/17/17 Levothyroxine Sodium [Synthroid] 125 mcg PO DAILY 02/17/17 clonazePAM [Klonopin] 0.5 mg PO TID PRN 02/17/17 Docusate Sodium [Colace] 100 mg PO DAILY #30 capsule 02/19/17
== END 2017-02-19 14:00 | disposition home or self-care (01) | DRG 639 ==
LOC: ER 15:49 → SCU 19:42
PROVIDERS: ADMIT Nurse Practitioner; ATTEND Internal Medicine
PROC: 4A033R1 Measurement of Arterial Saturation, Peripheral, Percutaneous Approach (ICD-10-PCS; principal; 2017-02-16)
DX: E10.10 Type 1 diabetes mellitus with ketoacidosis without coma (principal); E87.6 Hypokalemia; F15.10 Other stimulant abuse, uncomplicated; F12.10 Cannabis abuse, uncomplicated; F17.210 Nicotine dependence, cigarettes, uncomplicated; K59.00 Constipation, unspecified; E03.9 Hypothyroidism, unspecified; J45.909 Unspecified asthma, uncomplicated; Z79.4 Long term (current) use of insulin
CPT/HCPCS: 36415; 36600; 71020; 74020; 80048; 80053; 80307; 81001; 82009; 82150; 82800; 82803; 82947; 83036; 83690; 83735; 84100; 84703; 85007; 85025; 94640; 96365; 96366; 96375; 99284; G0481; J2405

== ENCOUNTER 2019-03-16 03:58 | Observation (INO) ==
[2019-03-16] MEDS ORDERED: NORMAL SALINE 1,000 ML IV ONE (04:23)
[2019-03-16 04:39] LABS: Venous Blood Gas HCO3 23.1 mmol/L (22.0-29.0); Venous Blood Gas pH 7.4 (7.32-7.43)
--- NOTE | 2019-03-16 04:39 | ERNOTE ---
Medical Problem HPI - Narrative Date of Service: 03/16/19 - General Chief Complaint: Diabetes Related Problem Time Seen by Provider: 03/16/19 04:00 Source: patient Exam Limitations: clinical condition - Immun/Allergies/Home Medications Immunizations: IMMUNIZATION HX Immunizations Up to Date Yes History of Influenza Vaccine No Hx Pneumococcal Vaccination No Allergies/Adverse Reactions: Allergies No Known Allergies Allergy (Verified 11/15/18 11:39) Home Medications: HOME MEDICATIONS Aspirin/Acetaminophen/Caffeine [Excedrin Extra Strength] 2 tab PO Q6H PRN 02/17/17 [Last Taken Unknown] ferrous sulfate 325 mg (65 mg iron) tablet,delayed release 325 mg PO Q OTHER DAY 11/16/18 [Last Taken Unknown] fluoxetine 20 mg capsule 40 mg PO DAILY cap 11/16/18 [Last Taken Unknown] folic acid 1 mg tablet 1 mg PO DAILY 11/16/18 [Last Taken Unknown] insulin glargine 100 unit/mL (3 mL) subcutaneous pen 22 unit SUBCUT DAILY 11/16/18 [Last Taken Unknown] insulin lispro 100 unit/mL subcutaneous solution 4 unit SUBCUT QACLUNCH 11/16/18 [Last Taken Unknown] insulin lispro 100 unit/mL subcutaneous solution 8 unit SUBCUT QACBREAK 11/16/18 [Last Taken Unknown] insulin lispro 100 unit/mL subcutaneous solution 10 unit SUBCUT QACDINNER 11/16/18 [Last Taken Unknown] levothyroxine 100 mcg tablet 100 mcg PO DAILY 11/16/18 [Last Taken Unknown] melatonin 3 mg tablet 3 mg PO HS 11/16/18 [Last Taken Unknown] thiamine HCl (vitamin B1) 100 mg tablet 100 mg PO DAILY 11/16/18 [Last Taken Unknown] topiramate 25 mg tablet 75 mg PO DAILY tab 11/16/18 [Last Taken Unknown] - History of Present History Narrative: 39-year-old female with past medical history of type 1 diabetes presents for elevated blood sugars. She was reported to have blood sugars in the 600s while at home. EMS brought her in reported blood sugar in the high 400s. Patient reports she feels like she is aching and pain "all over. She is tearful and was reluctant to share additional information with this during interview. She states she does not remember when last time she took her insulin. She is accompanied by law enforcement due to out standing warrants. Date (Duration): 03/16/19 Timing: getting worse Severity: moderate Review of Systems - Narrative Narrative: Unobtainable due to patient's current condition lacking cooperativity Medical History (Last Reviewed 03/16/19 @ 04:30 by Suad Alonzo RN) Iron deficiency anemia Recurrent major depressive disorder Hypothyroidism Type 1 diabetes mellitus Onset Date: Unknown Surgical History: Surgical History (Last Reviewed 03/16/19 @ 04:30 by Suad Alonzo RN) No significant past surgical history Onset Date: Unknown Family History: Family History (Last Reviewed 03/16/19 @ 04:31 by Suad Alonzo RN) Mother Tumors Father COPD (chronic obstructive pulmonary disease) Emphysema, unspecified Social History: (Last Reviewed 03/16/19 @ 04:31 by Suad Aolnzo RN) Social History: Marital status: Single number of children: 2 Highest education level completed: 9th grade Service: No Tobacco: Smoking Status: Former smoker Alcohol: alcohol intake: current Substance Use: substance use type: former substance user, marijuana, methamphetamine Dietary Habits: caffeine: Yes Physical Exam - Physical Exam General Appearance: Present: alert, mild distress, other - Tearful Head Exam: Present: normal inspection Eye Exam: Normal inspection: bilateral Ears, Nose, Throat: Present: dry mucous membranes Neck: Present: nontender Respiratory: Present: no respiratory distress Cardiovascular/Chest: Present: regular rate, rhythm, no murmur, normal peripheral pulses Gastrointestinal/Abdominal: Present: normal bowel sounds, tenderness - Mild tenderness, generalized Rectal Exam: Present: deferred Pelvic Exam: Present: deferred Back Exam: Present: no vertebral tenderness Extremity Exam: Present: normal inspection Neurological Exam: Present: alert, disoriented to time. Absent: normal mood/affect Skin Exam: Present: normal color, warm/dry Progress - Date and Time Seen: Date and Time: 03/16/19 06:55 39-year-old female presents with hyperglycemic state. She is not in DKA currently has she is not acidotic however she does have a significantly elevated blood glucose level with ketones in her urine and elevated gap. Patient given insulin as well as IV fluids. Potassium is 3.9. She is also noted to have positive UDS for methamphetamines and marijuana. Her recreational pharmaceutical use could be clouding her overall clinical picture. Patient will be placed on observation for continued monitoring. - Vital Signs Vital Signs: Vital Signs 03/16/19 03:59 03/16/19 04:09 03/16/19 04:18 Temperature 36.5 C Pulse Rate 89 115 H 107 H Respiratory Rate 16 18 Blood Pressure 136/73 O2 Sat by Pulse Oximetry 100 98 - Progress/Reassessment Chief Complaint: Diabetes Related Problem Progress:: Improved - Transfer of Care Expected Disposition: Admit - Discussed case with Dr. Trujillo who will see patient upstairs. Departure Clinical Impression: Diabetes type 1, uncontrolled Qualifiers: Glycemic state: with hyperglycemia Qualified Code(s): E10.65 - Type 1 diabetes mellitus with hyperglycemia - Departure Disposition: Still a patient Condition: Stable
[2019-03-16 04:41] LABS: Hematocrit 32.9 % (37.0-47.0); Hemoglobin 11.6 gm/dL (12.5-16.0); Mean Cell Volume 86.4 fl (78-100); Mean Corpuscular Hemoglobin 30.4 pg (27-31); Mean Corpuscular Hgb Conc 35.3 g/dl (32-36); Neutrophil # 10.8 K/mm3 (1.3-6.0); Neutrophil % 64.9 % (42-75.0); Platelet Count 358 K/mm3 (150-450); Red Blood Count 3.81 M/mm3 (4.2-5.4); White Blood Count 16.6 K/mm3 (4.0-10.5)
[2019-03-16 04:47] LABS: Urine Bilirubin Negative (NEGATIVE); Urine Ketone 50 mg/dL (NEGATIVE); Urine Nitrite Negative (NEGATIVE); Urine Protein Negative (NEGATIVE); Urine Urobilinogen Normal (NORMAL)
[2019-03-16 04:48] LABS: Urine Appearance Clear (CLEAR); Urine Bacteria TRACE; Urine Blood 5 /ul (NEGATIVE); Urine Color Yellow; Urine RBC None Seen /hpf (0-5); Urine WBC None Seen /hpf (0-5)
[2019-03-16 04:56] LABS: Cocaine Ur Negative (NEGATIVE); Urine Barbiturate Negative (NEGATIVE); Urine Benzodiazepines Negative (NEGATIVE); Urine Opiates Negative (NEGATIVE); Urine PCP Negative (NEGATIVE); Urine THC Positive (NEGATIVE)
[2019-03-16 05:04] LABS: Albumin * 3.2 gm/dl (3.4-5.0); Anion Gap 15.2 mmol/L (6.8-13.8); BUN/Creatinine Ratio 18.1 (9.0-21.6); Bilirubin, Total 0.6 mg/dL (0.0-1.1); Ca. Corrected For Albumin 9.4 mg/dL (8.4-10.2); Calcium * 9.1 mg/dL (7.9-10.9); Carbon Dioxide 27.7 mmol/L (24-32.6); Potassium 3.9 mmol/L (3.4-4.6)
[2019-03-16] MEDS ORDERED: INSULIN LISPRO 100 UNITS/ML VIAL SC ONE ×2 (05:14→23:15)
[2019-03-16] MEDS ORDERED: POTASSIUM CHLORIDE 20 MEQ in NORMAL SALINE 1,000 ML IV SCH (05:30)
[2019-03-16 08:22] LABS: Anion Gap 11.7 mmol/L (6.8-13.8); Carbon Dioxide 30.7 mmol/L (24-32.6); Potassium 3.4 mmol/L (3.4-4.6)
[2019-03-16] MEDS ORDERED: FLUoxetine HCL 20 MG CAPSULE PO SCH (10:15)
[2019-03-16] MEDS ORDERED: TOPIRAMATE 50 MG TABLET PO SCH (10:15)
[2019-03-16] MEDS ORDERED: FOLIC ACID 1 MG TABLET PO SCH (10:15)
[2019-03-16] MEDS ORDERED: LEVOTHYROXINE SODIUM 100 MCG TABLET PO SCH (10:15)
[2019-03-16] MEDS ORDERED: THIAMINE HCL 100 MG TABLET PO SCH (10:15)
[2019-03-16] MEDS ORDERED: FERROUS SULFATE 325 MG TABLET PO SCH (10:15)
[2019-03-16] MEDS: INSULIN GLARGINE,HUM.REC.ANLOG 100 UNITS/ML VIAL SC SCH (10:37)
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
[2019-03-16] MEDS: INSULIN LISPRO 100 UNITS/ML VIAL SC SCH ×2 (12:09→17:09)
[2019-03-16] MEDS ORDERED: INSULIN LISPRO 100 UNITS/ML VIAL SC STA (20:54)
[2019-03-16] MEDS ORDERED: MELATONIN 3,000 MCG TABLET PO SCH (21:00)
[2019-03-17 06:31] LABS: Hemoglobin 10.9 gm/dL (12.5-16.0); Mean Cell Volume 90.1 fl (78-100); Mean Corpuscular Hemoglobin 30.7 pg (27-31); Mean Corpuscular Hgb Conc 34.1 g/dl (32-36); Mean Platelet Volume 9.9 fl (8-12.5); Neutrophil # 7.4 K/mm3 (1.3-6.0); Neutrophil % 71.8 % (42-75.0); Platelet Count 280 K/mm3 (150-450); Red Blood Count 3.55 M/mm3 (4.2-5.4); Red Cell Distribution Width 13.8 % (11.5-14.0); White Blood Count 10.4 K/mm3 (4.0-10.5)
[2019-03-17 06:45] LABS: Albumin * 2.6 gm/dl (3.4-5.0); Anion Gap 6.1 mmol/L (6.8-13.8); BUN/Creatinine Ratio 15.7 (9.0-21.6); Bilirubin, Total 0.3 mg/dL (0.0-1.1); Ca. Corrected For Albumin 8.8 mg/dL (8.4-10.2); Carbon Dioxide 33.3 mmol/L (24-32.6); Potassium 4.4 mmol/L (3.4-4.6); Total Protein 5.9 gm/dL (6.2-8.2)
[2019-03-17 07:15] VITALS: BP 110/71
[2019-03-17] MEDS: INSULIN LISPRO 100 UNITS/ML VIAL SC SCH (08:07)
[2019-03-17] MEDS: INSULIN GLARGINE,HUM.REC.ANLOG 100 UNITS/ML VIAL SC SCH (08:08)
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
[2019-03-20 05:27] LABS: Beta-Hydroxybutyrate 2.24 mmol/L
== END 2019-03-17 11:30 | disposition home or self-care (01) ==
LOC: ER 03:58 → SCU 03:58 → MS 09:49
PROVIDERS: ADMIT Family Medicine; ATTEND Family Medicine
CPT/HCPCS: 36415; 36416; 71010; 71045; 80048; 80053; 80307; 80320; 81001; 82010; 82693; 82803; 82947; 83605; 85025; 87086; 93005; 96365; 96366; 96375; 99285; G0378; G0481

== ENCOUNTER 2019-07-04 13:22 | Inpatient (IN) ==
[2019-07-04] MEDS ORDERED: NORMAL SALINE 1,000 ML IV ONE ×4 (13:32→17:15)
[2019-07-04] MEDS ORDERED: INSULIN REGULAR, HUMAN 100 UNITS/ML VIAL IV ONE ×2 (13:33→15:04)
[2019-07-04 13:48] LABS: Urine Bilirubin Negative (NEGATIVE); Urine Blood 50 /ul (NEGATIVE); Urine Ketone 50 mg/dL (NEGATIVE); Urine Nitrite Negative (NEGATIVE); Urine Protein 30 mg/dL (NEGATIVE); Urine Specific Gravity >=1.030 SP.GR. (1.005-1.010); Urine Urobilinogen Normal (NORMAL)
[2019-07-04 14:02] LABS: Cocaine Ur Negative (NEGATIVE); Urine Barbiturate Negative (NEGATIVE); Urine Benzodiazepines Negative (NEGATIVE); Urine Opiates Negative (NEGATIVE); Urine PCP Negative (NEGATIVE)
[2019-07-04 14:04] LABS: Urine THC Positive (NEGATIVE)
[2019-07-04 14:05] LABS: Urine Appearance Clear (CLEAR); Urine Bacteria None Seen; Urine Color Yellow; Urine RBC 0-5 /hpf (0-5); Urine WBC 0-5 /hpf (0-5)
[2019-07-04 14:06] LABS: Urine Yeast Many - 3+
[2019-07-04 14:18] LABS: Mean Cell Volume 97.8 fl (78-100); Mean Corpuscular Hemoglobin 30.4 pg (27-31); Mean Corpuscular Hgb Conc 31.1 g/dl (32-36); Mean Platelet Volume 10.1 fl (8-12.5); Platelet Count 389 K/mm3 (150-450); Red Cell Distribution Width 13.2 % (11.5-14.0)
[2019-07-04 14:20] LABS: White Blood Count 38.4 K/mm3 (4.0-10.5)
[2019-07-04 14:22] LABS: Total Cells Counted 100
[2019-07-04 14:35] LABS: ALT 122 U/L (19-67); AST 35 U/L (0-48); Albumin * 3.6 gm/dl (3.4-5.0); Alkaline Phosphatase * 191 U/L (50-170); Anion Gap 40.3 mmol/L (6.8-13.8); BUN/Creatinine Ratio 19.1 (9.0-21.6); Bilirubin, Total 0.6 mg/dL (0.0-1.1); Blood Urea Nitrogen 43 mg/dL (3-23); Ca. Corrected For Albumin 9.5 mg/dL (8.4-10.2); Calcium * 9.5 mg/dL (7.9-10.9); Chloride 86 mmol/L (97-106); Potassium 5.3 mmol/L (3.4-4.6); Sodium 126 mmol/L (132-142); Total Protein 7.2 gm/dL (6.2-8.2)
[2019-07-04 14:40] LABS: Atypical (Reactive) Lymph 2 % (0-2); Band 4 % (0-2.0); Lymphocyte 25 % (20-51); Monocyte 5 % (0-9); Neutrophil 64 % (42-75); Neutrophil # 24.6 K/mm3 (1.3-6.0); Platelet Estimate Normal (NORMAL); RBC Morphology Normal (NORMAL)
[2019-07-04 14:49] LABS: Glucose * 901 mg/dL (70-110)
--- NOTE | 2019-07-04 16:12 | ERNOTE ---
Medical Problem HPI - Narrative Date of Service: 07/04/19 - General Chief Complaint: Diabetes Related Problem Time Seen by Provider: 07/04/19 13:26 Source: patient, EMS Exam Limitations: no limitations - patient presentts to ed with c/o elevated blood sugar and confusion, knownhx of dka and non compliance - Immun/Allergies/Home Medications Immunizations: IMMUNIZATION HX Immunizations Up to Date Yes History of Influenza Vaccine No Hx Pneumococcal Vaccination No Allergies/Adverse Reactions: Allergies No Known Allergies Allergy (Verified 07/04/19 13:25) Home Medications: HOME MEDICATIONS Blood Sugar Diagnostic [Freestyle Lite Test Strip] 1 [facility] TID #100 strip 03/17/19 [Last Taken Unknown] FLUoxetine HCL [Prozac] 40 mg PO DAILY #30 cap 03/17/19 [Last Taken Unknown] Insulin Glargine,Hum.rec.anlog [Basaglar Kwikpen U-100] 30 unit SUBCUT DAILY #3 03/17/19 [Last Taken Unknown] Insulin Lispro [Humalog] 8 unit SUBCUT AC #3 vial 03/17/19 [Last Taken Unknown] levothyroxine 100 mcg tablet 100 mcg PO DAILY #30 tab 04/06/19 [Last Taken Unknown] blood sugar diagnostic See Rx Instructions .ROUTE .MEDSUPPLY #100 ea 04/08/19 [Last Taken Unknown] - History of Present History Timing: constant, getting worse Severity: moderate Modifying Factors - (Improves): Present: other - nothing Modifying Factors - (Worsens): Present: rest - nothing Review of Systems - Narrative Narrative: unable to obtain ros due to present condition - Review of Systems Constitutional: Present: See HPI EYE: Present: no symptoms reported ENT: Present: no symptoms reported Respiratory: Present: no symptoms reported Cardiology: Present: no symptoms reported Gastrointestinal/Abdominal: Present: no symptoms reported Genitourinary: Present: no symptoms reported Musculoskeletal: Present: no symptoms reported Skin: Present: no symptoms reported Neurological: Present: no symptoms reported Endocrine: Present: no symptoms reported Hematologic/Lymphatic: Present: no symptoms reported Psych: Present: no symptoms reported All Other Systems: All systems neg except as marked Medical History (Last Reviewed 07/04/19 @ 13:55 by Demetrius Gabriel RN) Iron deficiency anemia Recurrent major depressive disorder Hypothyroidism Type 1 diabetes mellitus Onset Date: Unknown Surgical History: Surgical History (Last Reviewed 07/04/19 @ 13:55 by Demetrius Gabriel RN) History of cholecystectomy No significant past surgical history Onset Date: Unknown Family History: Family History (Last Reviewed 07/04/19 @ 13:55 by Demetrius Gabriel RN) Mother Tumors Father Emphysema, unspecified COPD (chronic obstructive pulmonary disease) Other Social History: (Last Reviewed 07/04/19 @ 13:55 by Demetrius Gabriel RN) Social History: Marital status: Single number of children: 2 Highest education level completed: 9th grade Service: No Tobacco: Smoking Status: Former smoker Alcohol: alcohol intake: current Substance Use: substance use type: former substance user, marijuana, methamphetamine Dietary Habits: caffeine: Yes Physical Exam - Physical Exam General Appearance: Present: moderate distress, lethargic Head Exam: Present: normal inspection, no evidence of injury Eye Exam: Normal inspection: bilateral, PERRL: bilateral, EOMI: bilateral Ears, Nose, Throat: Present: normal ENT inspection, normal pharynx Neck: Present: normal inspection, nontender Respiratory: Present: no respiratory distress, normal breath sounds, no accessory muscle use, chest nontender, lungs clear Cardiovascular/Chest: Present: regular rate, rhythm, no murmur, normal peripheral pulses Gastrointestinal/Abdominal: Present: normal bowel sounds, nontender, no ndistended, soft, no organomegaly Extremity Exam: Present: normal inspection, non-tender, normal range of motion, no edema Neurological Exam: Present: disoriented to person, disoriented to time, disoriented to place, disoriented to situation Skin Exam: Present: pallor Lymphatic Exam: Present: no adenopathy Progress - Date and Time Seen: Date and Time: 07/04/19 16:08 condition unchanged, case discussed with dr jauregui accepted for admission to hospital - Results and Orders Patient's Lab Results:: I have reviewed the patient's lab results. - Vital Signs Patient's Vital Signs:: I have reviewed the patient's vital signs. Vital Signs: Vital Signs 07/04/19 13:23 07/04/19 14:30 07/04/19 15:00 Temperature 35.6 C L Pulse Rate 87 94 96 Respiratory Rate 13 23 H 13 Blood Pressure 131/80 131/80 131/80 O2 Sat by Pulse Oximetry 100 98 100 - EKG EKG #1 EKG: NSR - X-Ray X-Ray #1 X-Ray: chest Interpretation: Interp. by me - no acute process - Progress/Reassessment Chief Complaint: Diabetes Related Problem - Transfer of Care Expected Disposition: Admit Plan - Plan Plan: to admit to hosppital Departure Clinical Impression: DKA, type 1, Influenza A - Departure Disposition: Short Term Hospital Inpatient Condition: Critical
[2019-07-04] MEDS ORDERED: ACETAMINOPHEN 325 MG TABLET PO PRN (17:11)
[2019-07-04] MEDS: INSULIN REGULAR, HUMAN 100 UNITS in NORMAL SALINE 100 ML IV PRN ×2 (17:23)
[2019-07-04 18:31] LABS: Albumin * 3.1 gm/dl (3.4-5.0); Anion Gap 37.2 mmol/L (6.8-13.8); BUN/Creatinine Ratio 20.5 (9.0-21.6); Bilirubin, Total 0.5 mg/dL (0.0-1.1); Ca. Corrected For Albumin 8.8 mg/dL (8.4-10.2); Calcium * 8.4 mg/dL (7.9-10.9); Carbon Dioxide 5.6 mmol/L (24-32.6); Potassium 4.8 mmol/L (3.4-4.6); Total Protein 6.6 gm/dL (6.2-8.2)
--- NOTE | 2019-07-04 18:54 | HP ---
Chief Complaint - Chief Complaint Date of Service: 07/04/19 Time of Service: 18:45 Chief Complaint: Patient is extremely lethargic and nonverbal. However she is arousable to tactile and verbal stimuli. History of Present Illness: 39-year-old female with past medical history of type 1 diabetes, hypothyroidism, IV drug user, methamphetamine user, marijuana user, recurrent major depressive disorder was brought to the ER by EMS due to altered mental status and the patient being difficult to arouse. During bedside evaluation on admission the patient is extremely lethargic and difficult to arouse. She is unable to provide any history so any information gathered was derived from the notes done in the ER. Patient has been hospitalized here [facility] several times for DKA secondary to noncompliance with her insulin therapy to manage her diabetes and illegal drug use. Medical History (Last Reviewed 07/04/19 @ 13:55 by Demetrius Gabriel RN) Iron deficiency anemia Recurrent major depressive disorder Hypothyroidism Type 1 diabetes mellitus Onset Date: Unknown Surgical History: Surgical History (Last Reviewed 07/04/19 @ 13:55 by Demetrius Gabriel RN) History of cholecystectomy No significant past surgical history Onset Date: Unknown Family History: Family History (Last Reviewed 07/04/19 @ 13:55 by Demetrius Gabriel RN) Mother Tumors Father Emphysema, unspecified COPD (chronic obstructive pulmonary disease) Other Social History: (Last Reviewed 07/04/19 @ 13:55 by Demetrius Gabriel RN) Social History: Marital status: Single number of children: 2 Highest education level completed: 9th grade Service: No Tobacco: Smoking Status: Former smoker Alcohol: alcohol intake: current Substance Use: substance use type: former substance user, marijuana, methamphetamine Dietary Habits: caffeine: Yes Peds Patient Hx - Developmental: No Pertinent Hx Peds Patient Hx - Medical: Diabetes Peds Patient Hx - Cardiac/Respiratory: No Pertinent Hx Peds Patient Hx - Surgical: No Surgical History Patient History - Cancer: No Hx of Cancer Review Of Systems (GEN) - Review of Systems Additional Comments: Review of system was unobtainable since patient is nonverbal and difficult to arouse, she is unaccompanied at the moment and does not have anyone to provide the history of the present illness. Immunizations: IMMUNIZATION HX Immunizations Up to Date Yes History of Influenza Vaccine No Hx Pneumococcal Vaccination No Allergies/Adverse Reactions: Allergies Allergy/AdvReac Type Severity Reaction Status Date / Time No Known Allergies Allergy Verified 07/04/19 13:25 Home Medications: HOME MEDICATIONS Blood Sugar Diagnostic [Freestyle Lite Test Strip] 1 ea MC TID #100 strip 03/17/19 [Last Taken Unknown] FLUoxetine HCL [Prozac] 40 mg PO DAILY #30 cap 03/17/19 [Last Taken Unknown] Insulin Glargine,Hum.rec.anlog [Basaglar Kwikpen U-100] 30 unit SUBCUT DAILY #3 03/17/19 [Last Taken Unknown] Insulin Lispro [Humalog] 8 unit SUBCUT AC #3 vial 03/17/19 [Last Taken Unknown] levothyroxine 100 mcg tablet 100 mcg PO DAILY #30 tab 04/06/19 [Last Taken Unknown] blood sugar diagnostic See Rx Instructions .ROUTE .MEDSUPPLY #100 ea 04/08/19 [Last Taken Unknown] Exam - Exam Vital Signs: Vital Signs - Last Taken Temp 35.6 C L 07/04/19 17:03 Pulse 93 07/04/19 17:03 Resp 14 07/04/19 17:03 BP 110/77 07/04/19 17:03 Pulse Ox 96 07/04/19 17:03 Constitutional: Present: Well developed, No distress, Lethargic, Somnolent, Young ENT Exam: Present: hearing grossly normal Eye Exam: bilateral eye: normal inspection, PERRL, EOMI Neck: Present: non-tender, full range of motion, supple, normal inspection, trachea midline Back Exam: Present: normal inspection, no CVA tenderness, no vertebral tenderness Breasts: Present: Exam deferred Respiratory: Present: chest non-tender, lungs clear, normal breath sounds, no respiratory distress, no accessory muscle use Cardiovascular/Chest: Present: normal peripheral pulses, regular rate, rhythm, no chest tenderness, no edema, no gallop, no JVD, no murmur, no rub Peripheral Pulses: carotid (R): 3+, carotid (L): 3+, femoral (R): 3+, femoral (L): 3+, dorsalis-pedis (R): 3+, dorsalis-pedis (L): 3+ Abdomen: Present: Normal bowel sounds, soft, nontender, nondistended, no rebound tenderness, no hepatospenomegaly, no masses /Rectal: Present: Exam deferred Extremity: Present: normal range of motion, non-tender, normal inspection, no pedal edema, no calf tenderness, normal capillary refill, pelvis stable Skin Exam: Present: normal color, warm/dry, no cyanosis Lymphatic: Present: no adenopathy Neurologic: Present: surgery aide II-XII nml as tested, normal cerebellar test, no motor/sensory deficits, disoriented x 3 Appearance: Present: disheveled, impaired insight Eye contact: Present: avoids eye contact, refused to answer, belligerent, uncooperative Thoughts: Present: incoherent Diagnostic Studies: Abnormal Lab Results 07/04/19 07/04/19 07/04/19 Range/Units 13:43 13:43 13:55 WBC (4.0-10.5) K/mm3 MCHC (32-36) g/dl Band Neuts % (Manual) (0-2.0) % Neutrophils # (Manual) (1.3-6.0) K/mm3 Lymphocytes # (Manual) (1.5-3.5) k/mm3 Monocytes # (Manual) (0.0-1.0) k/mm3 pCO2 (32.0-45.0) mmHg pO2 (83.0-108.0) mmHg HCO3 (21.0-28.0) mmol/L Total CO2 (19.0-24.0) mmol/L Base Excess (-2.0-3.0) mmol/L ABG pH (7.35-7.45) Sodium (132-142) mmol/L Potassium (3.4-4.6) mmol/L Chloride (97-106) mmol/L Carbon Dioxide (24-32.6) mmol/L Anion Gap (6.8-13.8) mmol/L BUN (3-23) mg/dL Creatinine (0.4-1.4) mg/dL Est GFR (Non-Af Amer) (60-130) mL/min Random Glucose (70-110) mg/dL ALT (19-67) U/L Alkaline Phosphatase (50-170) U/L Albumin (3.4-5.0) gm/dl Urine Protein 30 H (NEGATIVE) mg/dL Urine Glucose (UA) >=1000 H (NEGATIVE) mg/dL Urine Blood 50 H (NEGATIVE) /ul Prot Sulfosalicylic Acd 2+ H (0) mg/dL Urine Yeast Many - 3+ H (NONE) Urine Marijuana (THC) Positive H (NEGATIVE) Serum Ketones (NEGATIVE) Influenza Type A Ag Positive H (NEGATIVE) 07/04/19 07/04/19 07/04/19 Range/Units 14:10 14:10 15:31 WBC 38.4 H (4.0-10.5) K/mm3 MCHC 31.1 L (32-36) g/dl Band Neuts % (Manual) 4 H (0-2.0) % Neutrophils # (Manual) 24.6 H (1.3-6.0) K/mm3 Lymphocytes # (Manual) 9.6 H (1.5-3.5) k/mm3 Monocytes # (Manual) 1.9 H (0.0-1.0) k/mm3 pCO2 Less than 14.9 L* (32.0-45.0) mmHg pO2 121.5 H (83.0-108.0) mmHg HCO3 3.3 L (21.0-28.0) mmol/L Total CO2 3.7 L (19.0-24.0) mmol/L Base Excess -25.2 L (-2.0-3.0) mmol/L ABG pH 7.04 L* (7.35-7.45) Sodium 126 L (132-142) mmol/L Potassium 5.3 H D (3.4-4.6) mmol/L Chloride 86 L (97-106) mmol/L Carbon Dioxide Less than 5.0 L (24-32.6) mmol/L Anion Gap 40.3 H (6.8-13.8) mmol/L BUN 43 H D (3-23) mg/dL Creatinine 2.25 H D (0.4-1.4) mg/dL Est GFR (Non-Af Amer) 26 L D (60-130) mL/min Random Glucose 901 H (70-110) mg/dL ALT 122 H (19-67) U/L Alkaline Phosphatase 191 H (50-170) U/L Albumin (3.4-5.0) gm/dl Urine Protein (NEGATIVE) mg/dL Urine Glucose (UA) (NEGATIVE) mg/dL Urine Blood (NEGATIVE) /ul Prot Sulfosalicylic Acd (0) mg/dL Urine Yeast (NONE) Urine Marijuana (THC) (NEGATIVE) Serum Ketones Positive - 20mg/dl H (NEGATIVE) Influenza Type A Ag (NEGATIVE) 07/04/19 07/04/19 07/04/19 Range/Units 16:12 17:38 17:45 WBC (4.0-10.5) K/mm3 MCHC (32-36) g/dl Band Neuts % (Manual) (0-2.0) % Neutrophils # (Manual) (1.3-6.0) K/mm3 Lymphocytes # (Manual) (1.5-3.5) k/mm3 Monocytes # (Manual) (0.0-1.0) k/mm3 pCO2 Less than 14.9 L* (32.0-45.0) mmHg pO2 136.3 H (83.0-108.0) mmHg HCO3 4.0 L (21.0-28.0) mmol/L Total CO2 4.4 L (19.0-24.0) mmol/L Base Excess -23.0 L (-2.0-3.0) mmol/L ABG pH 7.12 L* (7.35-7.45) Sodium (132-142) mmol/L Potassium 4.8 H (3.4-4.6) mmol/L Chloride 95 L (97-106) mmol/L Carbon Dioxide 5.6 L (24-32.6) mmol/L Anion Gap 37.2 H (6.8-13.8) mmol/L BUN 40 H (3-23) mg/dL Creatinine 1.95 H (0.4-1.4) mg/dL Est GFR (Non-Af Amer) 31 L (60-130) mL/min Random Glucose 690 H 690 H (70-110) mg/dL ALT 105 H (19-67) U/L Alkaline Phosphatase (50-170) U/L Albumin 3.1 L (3.4-5.0) gm/dl Urine Protein (NEGATIVE) mg/dL Urine Glucose (UA) (NEGATIVE) mg/dL Urine Blood (NEGATIVE) /ul Prot Sulfosalicylic Acd (0) mg/dL Urine Yeast (NONE) Urine Marijuana (THC) (NEGATIVE) Serum Ketones (NEGATIVE) Influenza Type A Ag (NEGATIVE) Laboratory Results WBC 38.4 K/mm3 (4.0-10.5) H 07/04/19 14:10 RBC 4.60 M/mm3 (4.2-5.4) 07/04/19 14:10 Hgb 14.0 gm/dL (12.5-16.0) 07/04/19 14:10 Hct 45.0 % (37.0-47.0) 07/04/19 14:10 MCV 97.8 fl (78-100) 07/04/19 14:10 MCH 30.4 pg (27-31) 07/04/19 14:10 MCHC 31.1 g/dl (32-36) L 07/04/19 14:10 RDW 13.2 % (11.5-14.0) 07/04/19 14:10 Plt Count 389 K/mm3 (150-450) 07/04/19 14:10 MPV 10.1 fl (8-12.5) 07/04/19 14:10 Neutrophils % (Manual) 64 % (42-75) 07/04/19 14:10 Band Neuts % (Manual) 4 % (0-2.0) H 07/04/19 14:10 Lymphocytes % (Manual) 25 % (20-51) 07/04/19 14:10 Monocytes % (Manual) 5 % (0-9) 07/04/19 14:10 Neutrophils # (Manual) 24.6 K/mm3 (1.3-6.0) H 07/04/19 14:10 Lymphocytes # (Manual) 9.6 k/mm3 (1.5-3.5) H 07/04/19 14:10 Monocytes # (Manual) 1.9 k/mm3 (0.0-1.0) H 07/04/19 14:10 Atypic/Reactive Lymphs 2 % (0-2) 07/04/19 14:10 Platelet Estimate Normal (NORMAL) 07/04/19 14:10 RBC Morphology Normal (NORMAL) 07/04/19 14:10 pCO2 Less than 14.9 mmHg (32.0-45.0) L* 07/04/19 16:12 pO2 136.3 mmHg (83.0-108.0) H 07/04/19 16:12 HCO3 4.0 mmol/L (21.0-28.0) L 07/04/19 16:12 Total CO2 4.4 mmol/L (19.0-24.0) L 07/04/19 16:12 Base Excess -23.0 mmol/L (-2.0-3.0) L 07/04/19 16:12 ABG pH 7.12 (7.35-7.45) L* 07/04/19 16:12 ABG O2 Sat (Measured) 97.9 % (94.0-98.0) 07/04/19 16:12 Sodium 133 mmol/L (132-142) 07/04/19 17:45 Plasma Sodium 142 mmol/L (130-142) 07/04/19 17:45 Potassium 4.8 mmol/L (3.4-4.6) H 07/04/19 17:45 Chloride 95 mmol/L (97-106) L 07/04/19 17:45 Carbon Dioxide 5.6 mmol/L (24-32.6) L 07/04/19 17:45 Anion Gap 37.2 mmol/L (6.8-13.8) H 07/04/19 17:45 BUN 40 mg/dL (3-23) H 07/04/19 17:45 Creatinine 1.95 mg/dL (0.4-1.4) H 07/04/19 17:45 Est GFR (Non-Af Amer) 31 mL/min (60-130) L 07/04/19 17:45 BUN/Creatinine Ratio 20.5 (9.0-21.6) 07/04/19 17:45 Random Glucose 690 mg/dL (70-110) H 07/04/19 17:45 Calcium 8.4 mg/dL (7.9-10.9) 07/04/19 17:45 Calcium Adj for Albumin 8.8 mg/dL (8.4-10.2) 07/04/19 17:45 Total Bilirubin 0.5 mg/dL (0.0-1.1) 07/04/19 17:45 AST 30 U/L (0-48) 07/04/19 17:45 ALT 105 U/L (19-67) H 07/04/19 17:45 Alkaline Phosphatase 157 U/L (50-170) 07/04/19 17:45 Total Protein 6.6 gm/dL (6.2-8.2) 07/04/19 17:45 Albumin 3.1 gm/dl (3.4-5.0) L 07/04/19 17:45 Urine Color Yellow 07/04/19 13:43 Urine Appearance Clear (CLEAR) 07/04/19 13:43 Urine pH 5.0 pH (5.0-7.0) 07/04/19 13:43 Ur Specific [place] >=1.030 SP.GR. (1.005-1.010) 07/04/19 13:43 Urine Protein 30 mg/dL (NEGATIVE) H 07/04/19 13:43 Urine Glucose (UA) >=1000 mg/dL (NEGATIVE) H 07/04/19 13:43 Urine Ketones 50 mg/dL (NEGATIVE) 07/04/19 13:43 Urine Blood 50 /ul (NEGATIVE) H 07/04/19 13:43 Urine Nitrate Negative (NEGATIVE) 07/04/19 13:43 Urine Bilirubin Negative mg/dl (NEGATIVE) 07/04/19 13:43 Prot Sulfosalicylic Acd 2+ mg/dL (0) H 07/04/19 13:43 Urine Urobilinogen Normal EU/dl (NORMAL) 07/04/19 13:43 Ur Leukocyte Esterase Negative /ul (NEGATIVE) 07/04/19 13:43 Urine RBC 0-5 /hpf (0-5) 07/04/19 13:43 Urine WBC 0-5 /hpf (0-5) 07/04/19 13:43 Ur Epithelial Cells 0-5 /hpf (0-5) 07/04/19 13:43 Urine Bacteria None seen (NONE) 07/04/19 13:43 Urine Yeast Many - 3+ (NONE) H 07/04/19 13:43 Urine Culture Comments Culture to follow 07/04/19 13:43 Urine Opiates Screen Negative (NEGATIVE) 07/04/19 13:43 Barbiturate Screen Negative (NEGATIVE) 07/04/19 13:43 Ur Phencyclidine Scrn Negative (NEGATIVE) 07/04/19 13:43 Urine Amphetamine Negative (NEGATIVE) 07/04/19 13:43 U Benzodiazepines Scrn Negative (NEGATIVE) 07/04/19 13:43 Urine Cocaine Screen Negative (NEGATIVE) 07/04/19 13:43 Urine Marijuana (THC) Positive (NEGATIVE) H 07/04/19 13:43 Serum Ketones Positive - 20mg/dl (NEGATIVE) H 07/04/19 14:10 Influenza Type A Ag Positive (NEGATIVE) H 07/04/19 13:55 Influenza Type B Ag Negative (NEGATIVE) 07/04/19 13:55 Assessment/Plan - Narrative Narrative: Patient was evaluated and medical chart was reviewed and decision to admit to our special care unit for the treatment of DKA was made. She is currently on IV hydration and an insulin drip, blood sugars are being checked hourly until goal is reached. We are also monitoring electrolytes and blood gases every 4 hours. Vitals were also being closely monitored and patient was placed on a rn cardiac rehab. Will resume all of her routine medications and start her back on her subcutaneous insulin once her anion gap closes and the DKA resolves. Patient tested positive for marijuana and had large ketones in serum and urine. Blood sugars were above 900 when she arrived at the ER and she was found to be acidotic on labs. Will monitor per the DKA protocol and monitor closely. - Assessment/Plan (1) DKA (diabetic ketoacidoses) Problem: Acute (2) Substance abuse Problem: Chronic (3) Diabetes 1.5, managed as type 1 Problem: Chronic (4) Hypothyroidism Problem: Chronic (5) Altered mental status associated with intoxication Problem: Acute
[2019-07-04] MEDS: PANTOPRAZOLE SODIUM 40 MG in NORMAL SALINE 100 ML IV SCH (19:55)
[2019-07-04] MEDS: POTASSIUM CHLORIDE 20 MEQ in 0.5 NORMAL SALINE 1,000 ML IV SCH (20:50)
[2019-07-04] MEDS: OSELTAMIVIR PHOSPHATE 75 MG CAPSULE PO SCH (22:18)
[2019-07-04 22:32] LABS: Albumin * 3.1 gm/dl (3.4-5.0); Anion Gap 27.2 mmol/L (6.8-13.8); BUN/Creatinine Ratio 20.3 (9.0-21.6); Bilirubin, Total 0.6 mg/dL (0.0-1.1); Ca. Corrected For Albumin 8.7 mg/dL (8.4-10.2); Calcium * 8.3 mg/dL (7.9-10.9); Carbon Dioxide 12.6 mmol/L (24-32.6); Potassium 3.8 mmol/L (3.4-4.6); Total Protein 6.5 gm/dL (6.2-8.2)
[2019-07-05] MEDS: POTASSIUM CHLORIDE 20 MEQ in 0.5 NORMAL SALINE 1,000 ML IV SCH (01:41)
[2019-07-05 02:42] LABS: Albumin * 2.9 gm/dl (3.4-5.0); Anion Gap 20.3 mmol/L (6.8-13.8); BUN/Creatinine Ratio 18.9 (9.0-21.6); Bilirubin, Total 0.3 mg/dL (0.0-1.1); Ca. Corrected For Albumin 8.4 mg/dL (8.4-10.2); Calcium * 7.8 mg/dL (7.9-10.9); Carbon Dioxide 18.8 mmol/L (24-32.6); Potassium 4.1 mmol/L (3.4-4.6); Total Protein 6.2 gm/dL (6.2-8.2)
[2019-07-05] MEDS: PANTOPRAZOLE SODIUM 40 MG in NORMAL SALINE 100 ML IV SCH ×2 (05:58→17:28)
[2019-07-05] MEDS: POTASSIUM CHLORIDE/D5-0.5NS 1,000 ML IV SCH ×3 (06:20→20:36)
[2019-07-05 07:05] LABS: Albumin * 2.8 gm/dl (3.4-5.0); Anion Gap 18.3 mmol/L (6.8-13.8); BUN/Creatinine Ratio 19.3 (9.0-21.6); Bilirubin, Total 0.3 mg/dL (0.0-1.1); Ca. Corrected For Albumin 8.5 mg/dL (8.4-10.2); Calcium * 7.9 mg/dL (7.9-10.9); Carbon Dioxide 19.7 mmol/L (24-32.6); Total Protein 6.3 gm/dL (6.2-8.2)
[2019-07-05] MEDS: LEVOTHYROXINE SODIUM 100 MCG TABLET PO SCH ×2 (07:18→07:43)
[2019-07-05] MEDS ORDERED: ACETAMINOPHEN 650 MG SUPP.RECT RC PRN (08:52)
[2019-07-05] MEDS: DOCUSATE SODIUM 100 MG CAPSULE PO SCH (08:56)
[2019-07-05] MEDS: FLUoxetine HCL 20 MG CAPSULE PO SCH (08:56)
[2019-07-05] MEDS: OSELTAMIVIR PHOSPHATE 75 MG CAPSULE PO SCH ×2 (08:56→20:30)
--- NOTE | 2019-07-05 09:37 | PN ---
Subjective - Date and Time Seen Date: 07/05/19 Time: 09:21 Subjective Narrative: Patient is still sedated and nonverbal. Objective Objective Narrative: 39-year-old female admitted for DKA, uncontrolled type 1 diabetes, influenza type a, and illegal substance intoxication was evaluated at bedside while in the SCU and was found to be maintaining stable vitals however the patient remains heavily sedated and is only arousable to painful stimuli. Patient not currently communicating and is unable to provide any history or answers to questions. Nursing staff deny any adverse events during the night outside of mild tachycardia, however this morning fever was reported. Acetaminophen suppositories were ordered. Nursing staff also report that the patient is refusing to take any medications by mouth, therefore the originally ordered Tamiflu could not be administered. We have been monitoring the patient with CMP's and ABGs every 4 hours for the evaluation and management of her DKA, labs this morning demonstrate resolution of her acidosis and her hyponatremia has also resolved. Her hyperglycemia is also resolved and her potassium is within normal range. We will keep the patient on the insulin drip running at the minimal rate until the anion gap has closed and the DKA has resolved. We are also watching her with regular glucose monitoring to avoid hypoglycemia while on the drip. - Review of Systems Generalized/Overall Review: Reports: No Symptoms Reported - Review of system could not be completed due to the patient being sedated and nonverbal at the moment. Patient is only arousable to painful stimuli. - Vitals Vitals: Last Vital Signs Temp 38.3 C H 07/05/19 08:00 Pulse 101 H 07/05/19 08:00 Resp 14 07/05/19 05:00 BP 95/46 07/05/19 08:00 Pulse Ox 100 07/05/19 08:00 - Abnormal Lab Findings Abnormal Lab Findings: Abnormal Lab Results 07/04/19 07/04/19 07/04/19 Range/Units 13:43 13:43 13:55 WBC (4.0-10.5) K/mm3 MCHC (32-36) g/dl Band Neuts % (Manual) (0-2.0) % Neutrophils # (Manual) (1.3-6.0) K/mm3 Lymphocytes # (Manual) (1.5-3.5) k/mm3 Monocytes # (Manual) (0.0-1.0) k/mm3 pCO2 (32.0-45.0) mmHg pO2 (83.0-108.0) mmHg HCO3 (21.0-28.0) mmol/L Total CO2 (19.0-24.0) mmol/L Base Excess (-2.0-3.0) mmol/L ABG pH (7.35-7.45) Sodium (132-142) mmol/L Plasma Sodium (130-142) mmol/L Potassium (3.4-4.6) mmol/L Chloride (97-106) mmol/L Carbon Dioxide (24-32.6) mmol/L Anion Gap (6.8-13.8) mmol/L BUN (3-23) mg/dL Creatinine (0.4-1.4) mg/dL Est GFR (Non-Af Amer) (60-130) mL/min Random Glucose (70-110) mg/dL Calcium (7.9-10.9) mg/dL ALT (19-67) U/L Alkaline Phosphatase (50-170) U/L Albumin (3.4-5.0) gm/dl Urine Protein 30 H (NEGATIVE) mg/dL Urine Glucose (UA) >=1000 H (NEGATIVE) mg/dL Urine Blood 50 H (NEGATIVE) /ul Prot Sulfosalicylic Acd 2+ H (0) mg/dL Urine Yeast Many - 3+ H (NONE) Urine Marijuana (THC) Positive H (NEGATIVE) Serum Ketones (NEGATIVE) Influenza Type A Ag Positive H (NEGATIVE) 07/04/19 07/04/19 07/04/19 Range/Units 14:10 14:10 15:31 WBC 38.4 H (4.0-10.5) K/mm3 MCHC 31.1 L (32-36) g/dl Band Neuts % (Manual) 4 H (0-2.0) % Neutrophils # (Manual) 24.6 H (1.3-6.0) K/mm3 Lymphocytes # (Manual) 9.6 H (1.5-3.5) k/mm3 Monocytes # (Manual) 1.9 H (0.0-1.0) k/mm3 pCO2 Less than 14.9 L* (32.0-45.0) mmHg pO2 121.5 H (83.0-108.0) mmHg HCO3 3.3 L (21.0-28.0) mmol/L Total CO2 3.7 L (19.0-24.0) mmol/L Base Excess -25.2 L (-2.0-3.0) mmol/L ABG pH 7.04 L* (7.35-7.45) Sodium 126 L (132-142) mmol/L Plasma Sodium (130-142) mmol/L Potassium 5.3 H D (3.4-4.6) mmol/L Chloride 86 L (97-106) mmol/L Carbon Dioxide Less than 5.0 L (24-32.6) mmol/L Anion Gap 40.3 H (6.8-13.8) mmol/L BUN 43 H D (3-23) mg/dL Creatinine 2.25 H D (0.4-1.4) mg/dL Est GFR (Non-Af Amer) 26 L D (60-130) mL/min Random Glucose 901 H (70-110) mg/dL Calcium (7.9-10.9) mg/dL ALT 122 H (19-67) U/L Alkaline Phosphatase 191 H (50-170) U/L Albumin (3.4-5.0) gm/dl Urine Protein (NEGATIVE) mg/dL Urine Glucose (UA) (NEGATIVE) mg/dL Urine Blood (NEGATIVE) /ul Prot Sulfosalicylic Acd (0) mg/dL Urine Yeast (NONE) Urine Marijuana (THC) (NEGATIVE) Serum Ketones Positive - 20mg/dl H (NEGATIVE) Influenza Type A Ag (NEGATIVE) 07/04/19 07/04/19 07/04/19 Range/Units 16:12 17:38 17:45 WBC (4.0-10.5) K/mm3 MCHC (32-36) g/dl Band Neuts % (Manual) (0-2.0) % Neutrophils # (Manual) (1.3-6.0) K/mm3 Lymphocytes # (Manual) (1.5-3.5) k/mm3 Monocytes # (Manual) (0.0-1.0) k/mm3 pCO2 Less than 14.9 L* (32.0-45.0) mmHg pO2 136.3 H (83.0-108.0) mmHg HCO3 4.0 L (21.0-28.0) mmol/L Total CO2 4.4 L (19.0-24.0) mmol/L Base Excess -23.0 L (-2.0-3.0) mmol/L ABG pH 7.12 L* (7.35-7.45) Sodium (132-142) mmol/L Plasma Sodium (130-142) mmol/L Potassium 4.8 H (3.4-4.6) mmol/L Chloride 95 L (97-106) mmol/L Carbon Dioxide 5.6 L (24-32.6) mmol/L Anion Gap 37.2 H (6.8-13.8) mmol/L BUN 40 H (3-23) mg/dL Creatinine 1.95 H (0.4-1.4) mg/dL Est GFR (Non-Af Amer) 31 L (60-130) mL/min Random Glucose 690 H 690 H (70-110) mg/dL Calcium (7.9-10.9) mg/dL ALT 105 H (19-67) U/L Alkaline Phosphatase (50-170) U/L Albumin 3.1 L (3.4-5.0) gm/dl Urine Protein (NEGATIVE) mg/dL Urine Glucose (UA) (NEGATIVE) mg/dL Urine Blood (NEGATIVE) /ul Prot Sulfosalicylic Acd (0) mg/dL Urine Yeast (NONE) Urine Marijuana (THC) (NEGATIVE) Serum Ketones (NEGATIVE) Influenza Type A Ag (NEGATIVE) 07/04/19 07/04/19 07/04/19 Range/Units 19:00 21:00 22:10 WBC (4.0-10.5) K/mm3 MCHC (32-36) g/dl Band Neuts % (Manual) (0-2.0) % Neutrophils # (Manual) (1.3-6.0) K/mm3 Lymphocytes # (Manual) (1.5-3.5) k/mm3 Monocytes # (Manual) (0.0-1.0) k/mm3 pCO2 19.8 L* (32.0-45.0) mmHg pO2 113.4 H (83.0-108.0) mmHg HCO3 9.1 L (21.0-28.0) mmol/L Total CO2 9.7 L (19.0-24.0) mmol/L Base Excess -15.4 L (-2.0-3.0) mmol/L ABG pH 7.28 L (7.35-7.45) Sodium (132-142) mmol/L Plasma Sodium 143 H (130-142) mmol/L Potassium (3.4-4.6) mmol/L Chloride (97-106) mmol/L Carbon Dioxide 12.6 L (24-32.6) mmol/L Anion Gap 27.2 H (6.8-13.8) mmol/L BUN 35 H (3-23) mg/dL Creatinine 1.72 H (0.4-1.4) mg/dL Est GFR (Non-Af Amer) 35 L (60-130) mL/min Random Glucose 598 H 409 H D (70-110) mg/dL Calcium (7.9-10.9) mg/dL ALT 100 H (19-67) U/L Alkaline Phosphatase (50-170) U/L Albumin 3.1 L (3.4-5.0) gm/dl Urine Protein (NEGATIVE) mg/dL Urine Glucose (UA) (NEGATIVE) mg/dL Urine Blood (NEGATIVE) /ul Prot Sulfosalicylic Acd (0) mg/dL Urine Yeast (NONE) Urine Marijuana (THC) (NEGATIVE) Serum Ketones (NEGATIVE) Influenza Type A Ag (NEGATIVE) 07/05/19 07/05/19 07/05/19 Range/Units 01:01 02:25 05:05 WBC (4.0-10.5) K/mm3 MCHC (32-36) g/dl Band Neuts % (Manual) (0-2.0) % Neutrophils # (Manual) (1.3-6.0) K/mm3 Lymphocytes # (Manual) (1.5-3.5) k/mm3 Monocytes # (Manual) (0.0-1.0) k/mm3 pCO2 25.1 L 29.7 L (32.0-45.0) mmHg pO2 75.4 L (83.0-108.0) mmHg HCO3 13.1 L 17.1 L (21.0-28.0) mmol/L Total CO2 13.8 L 18.0 L (19.0-24.0) mmol/L Base Excess -11.1 L -6.9 L (-2.0-3.0) mmol/L ABG pH 7.33 L (7.35-7.45) Sodium (132-142) mmol/L Plasma Sodium 143 H (130-142) mmol/L Potassium (3.4-4.6) mmol/L Chloride (97-106) mmol/L Carbon Dioxide 18.8 L (24-32.6) mmol/L Anion Gap 20.3 H (6.8-13.8) mmol/L BUN 31 H (3-23) mg/dL Creatinine 1.64 H (0.4-1.4) mg/dL Est GFR (Non-Af Amer) 37 L (60-130) mL/min Random Glucose 206 H D (70-110) mg/dL Calcium 7.8 L (7.9-10.9) mg/dL ALT 94 H (19-67) U/L Alkaline Phosphatase (50-170) U/L Albumin 2.9 L (3.4-5.0) gm/dl Urine Protein (NEGATIVE) mg/dL Urine Glucose (UA) (NEGATIVE) mg/dL Urine Blood (NEGATIVE) /ul Prot Sulfosalicylic Acd (0) mg/dL Urine Yeast (NONE) Urine Marijuana (THC) (NEGATIVE) Serum Ketones (NEGATIVE) Influenza Type A Ag (NEGATIVE) 07/05/19 Range/Units 06:45 WBC (4.0-10.5) K/mm3 MCHC (32-36) g/dl Band Neuts % (Manual) (0-2.0) % Neutrophils # (Manual) (1.3-6.0) K/mm3 Lymphocytes # (Manual) (1.5-3.5) k/mm3 Monocytes # (Manual) (0.0-1.0) k/mm3 pCO2 (32.0-45.0) mmHg pO2 (83.0-108.0) mmHg HCO3 (21.0-28.0) mmol/L Total CO2 (19.0-24.0) mmol/L Base Excess (-2.0-3.0) mmol/L ABG pH (7.35-7.45) Sodium (132-142) mmol/L Plasma Sodium (130-142) mmol/L Potassium (3.4-4.6) mmol/L Chloride (97-106) mmol/L Carbon Dioxide 19.7 L (24-32.6) mmol/L Anion Gap 18.3 H (6.8-13.8) mmol/L BUN 29 H (3-23) mg/dL Creatinine 1.50 H (0.4-1.4) mg/dL Est GFR (Non-Af Amer) 42 L (60-130) mL/min Random Glucose (70-110) mg/dL Calcium (7.9-10.9) mg/dL ALT 91 H (19-67) U/L Alkaline Phosphatase (50-170) U/L Albumin 2.8 L (3.4-5.0) gm/dl Urine Protein (NEGATIVE) mg/dL Urine Glucose (UA) (NEGATIVE) mg/dL Urine Blood (NEGATIVE) /ul Prot Sulfosalicylic Acd (0) mg/dL Urine Yeast (NONE) Urine Marijuana (THC) (NEGATIVE) Serum Ketones (NEGATIVE) Influenza Type A Ag (NEGATIVE) - Exam Constitutional: Present: Well developed, No distress, Lethargic, Somnolent ENT Exam: Present: normal ENT inspection Neck: Present: non-tender, full range of motion, supple, normal inspection, trachea midline Breasts: Present: Exam deferred Respiratory: Present: chest non-tender, lungs clear, normal breath sounds, no respiratory distress, no accessory muscle use Cardiovascular/Chest: Present: normal peripheral pulses, regular rate, rhythm, no chest tenderness, no edema, no gallop, no JVD, no murmur, no rub Abdomen: Present: Normal bowel sounds, soft, nontender, nondistended, no rebound tenderness, no hepatospenomegaly /Rectal: Present: Exam deferred Extremity: Present: normal range of motion, non-tender, normal inspection, no pedal edema, no calf tenderness, normal capillary refill Skin Exam: Present: normal color, warm/dry, no cyanosis Lymphatic: Present: no adenopathy Neurologic: Present: depressed affect, disoriented x 3, other - Patient is sedated, somnolent, and only arousable to painful stimuli. Appearance: Present: disheveled Eye contact: Present: cooperative, good eye contact, normal speech Thoughts: Present: normal thought pattern, no apparent hallucination Assessment/Plan Plan Narrative: We will continue to monitor the patient closely while in the SCU. Serial ABGs and CMP's have been ordered for evaluation and management of her DKA. Clinically she is stable however the patient remains heavily sedated. In fact she is nonverbal and unable to answer questions. She also does not awaken to take any of her oral meds including her Tamiflu, so this morning we had to administer Tylenol transrectally. We will keep her on a insulin drip until the DKA has resolved and hopefully start oral intake when she wakens. - Problems/Diagnosis (1) DKA (diabetic ketoacidoses) Problem: Acute (2) Substance abuse Problem: Chronic (3) Diabetes 1.5, managed as type 1 Problem: Chronic (4) Hypothyroidism Problem: Chronic (5) Altered mental status associated with intoxication Problem: Acute
[2019-07-05 10:27] LABS: Hematocrit 32.5 % (37.0-47.0); Hemoglobin 11.4 gm/dL (12.5-16.0); Mean Cell Volume 87.1 fl (78-100); Mean Corpuscular Hemoglobin 30.6 pg (27-31); Mean Corpuscular Hgb Conc 35.1 g/dl (32-36); Mean Platelet Volume 9.4 fl (8-12.5); Neutrophil # 8.2 K/mm3 (1.3-6.0); Platelet Count 269 K/mm3 (150-450); Red Blood Count 3.73 M/mm3 (4.2-5.4); Red Cell Distribution Width 12.8 % (11.5-14.0); White Blood Count 10.9 K/mm3 (4.0-10.5)
[2019-07-05 10:40] LABS: Albumin * 2.8 gm/dl (3.4-5.0); Anion Gap 17.8 mmol/L (6.8-13.8); BUN/Creatinine Ratio 20.7 (9.0-21.6); Bilirubin, Total 0.3 mg/dL (0.0-1.1); Ca. Corrected For Albumin 8.4 mg/dL (8.4-10.2); Calcium * 7.8 mg/dL (7.9-10.9); Carbon Dioxide 18.1 mmol/L (24-32.6); Potassium 3.9 mmol/L (3.4-4.6)
[2019-07-05 15:09] LABS: Albumin * 2.6 gm/dl (3.4-5.0); Anion Gap 17.3 mmol/L (6.8-13.8); BUN/Creatinine Ratio 19.5 (9.0-21.6); Bilirubin, Total 0.3 mg/dL (0.0-1.1); Ca. Corrected For Albumin 8.8 mg/dL (8.4-10.2); Carbon Dioxide 19.6 mmol/L (24-32.6); Potassium 3.9 mmol/L (3.4-4.6); Total Protein 5.7 gm/dL (6.2-8.2)
[2019-07-05 18:57] LABS: Albumin * 2.8 gm/dl (3.4-5.0); BUN/Creatinine Ratio 17.1 (9.0-21.6); Bilirubin, Total 0.3 mg/dL (0.0-1.1); Ca. Corrected For Albumin 8.7 mg/dL (8.4-10.2); Calcium * 8.1 mg/dL (7.9-10.9); Carbon Dioxide 20.5 mmol/L (24-32.6); Potassium 3.5 mmol/L (3.4-4.6); Total Protein 6.2 gm/dL (6.2-8.2)
[2019-07-05] MEDS: INSULIN REGULAR, HUMAN 100 UNITS in NORMAL SALINE 100 ML IV PRN ×2 (20:37)
[2019-07-05 23:15] LABS: Albumin * 2.6 gm/dl (3.4-5.0); Anion Gap 13.7 mmol/L (6.8-13.8); Bilirubin, Total 0.2 mg/dL (0.0-1.1); Ca. Corrected For Albumin 8.7 mg/dL (8.4-10.2); Calcium * 7.9 mg/dL (7.9-10.9); Carbon Dioxide 21.6 mmol/L (24-32.6); Potassium 3.3 mmol/L (3.4-4.6); Total Protein 5.7 gm/dL (6.2-8.2)
[2019-07-05] MEDS ORDERED: POTASSIUM CHLORIDE 20 MEQ TABLET.SA PO ONE (23:40)
[2019-07-05] MEDS ORDERED: INSULIN LISPRO 100 UNITS/ML VIAL SC ONE (23:41)
[2019-07-05] MEDS ORDERED: INSULIN GLARGINE,HUM.REC.ANLOG 100 UNITS/ML VIAL SC ONE (23:42)
[2019-07-06 02:51] LABS: Albumin * 2.5 gm/dl (3.4-5.0); Anion Gap 13.2 mmol/L (6.8-13.8); BUN/Creatinine Ratio 15.5 (9.0-21.6); Bilirubin, Total 0.2 mg/dL (0.0-1.1); Ca. Corrected For Albumin 8.2 mg/dL (8.4-10.2); Calcium * 7.3 mg/dL (7.9-10.9); Carbon Dioxide 22.2 mmol/L (24-32.6); Potassium 3.4 mmol/L (3.4-4.6); Total Protein 5.5 gm/dL (6.2-8.2)
[2019-07-06] MEDS: POTASSIUM CHLORIDE/D5-0.5NS 1,000 ML IV SCH (03:21)
[2019-07-06] MEDS: PANTOPRAZOLE SODIUM 40 MG in NORMAL SALINE 100 ML IV SCH (05:05)
[2019-07-06] MEDS: LEVOTHYROXINE SODIUM 100 MCG TABLET PO SCH (06:27)
[2019-07-06 06:39] LABS: Hematocrit 28.5 % (37.0-47.0); Hemoglobin 9.8 gm/dL (12.5-16.0); Mean Cell Volume 87.7 fl (78-100); Mean Corpuscular Hemoglobin 30.2 pg (27-31); Mean Corpuscular Hgb Conc 34.4 g/dl (32-36); Mean Platelet Volume 9.4 fl (8-12.5); Neutrophil # 4.3 K/mm3 (1.3-6.0); Neutrophil % 63.2 % (42-75.0); Platelet Count 200 K/mm3 (150-450); Red Blood Count 3.25 M/mm3 (4.2-5.4); Red Cell Distribution Width 13.5 % (11.5-14.0); White Blood Count 6.8 K/mm3 (4.0-10.5)
[2019-07-06 06:47] LABS: Albumin * 2.3 gm/dl (3.4-5.0); Anion Gap 13.7 mmol/L (6.8-13.8); BUN/Creatinine Ratio 13.7 (9.0-21.6); Bilirubin, Total 0.3 mg/dL (0.0-1.1); Ca. Corrected For Albumin 8.2 mg/dL (8.4-10.2); Calcium * 7.2 mg/dL (7.9-10.9); Carbon Dioxide 21.2 mmol/L (24-32.6); Potassium 3.9 mmol/L (3.4-4.6); Total Protein 5.1 gm/dL (6.2-8.2)
[2019-07-06] MEDS ORDERED: INSULIN LISPRO 100 UNITS/ML VIAL SC SCH (07:00)
[2019-07-06] MEDS: DOCUSATE SODIUM 100 MG CAPSULE PO SCH (08:29)
[2019-07-06] MEDS: FLUoxetine HCL 20 MG CAPSULE PO SCH (08:29)
[2019-07-06] MEDS: OSELTAMIVIR PHOSPHATE 75 MG CAPSULE PO SCH (08:30)
[2019-07-06] MEDS ORDERED: INSULIN GLARGINE,HUM.REC.ANLOG 100 UNITS/ML VIAL SC SCH (09:00)
[2019-07-06 09:04] VITALS: BP 108/61
--- NOTE | 2019-07-06 09:28 | DS ---
(1) DKA (diabetic ketoacidoses) Problem: Resolved Qualifiers: Diabetes mellitus type: type 1 (2) Substance abuse Problem: Chronic (3) Diabetes 1.5, managed as type 1 Problem: Chronic (4) Hypothyroidism Problem: Chronic Qualifiers: Hypothyroidism type: acquired Qualified Code(s): E03.9 - Hypothyroidism, unspecified (5) Altered mental status associated with intoxication Problem: Resolved Date of Discharge:: 07/06/19 Hospital Course: 39-year-old female admitted for diabetic ketoacidosis, SIRS, and altered mental status was evaluated at bedside and was found to be afebrile, alert, with stable vitals. Patient is now fully awake and reports feeling much better, she tolerated oral intake after the insulin drip was discontinued. The drip was discontinued after serial labs confirmed that her anion gap had finally closed and her glucose levels now within the desired range. There were no adverse events reported during the night by nursing staff. Patient is voiding adequately and denies any new symptoms. This morning while at her bedside when asked how she ended up in the hospital now that she is able to speak she reported that she stopped taking her insulin days ago and has been noncompliant. The patient notes that she has all her medications at home however she chooses not to use them. She was counseled on the importance of being compliant with doctors orders and all prescribed medications to avoid further hospitalizations. Patient also tested positive for influenza type a on admission however given her sedated state she was not taking any oral medications, we gave her 2 doses once she was awake and accepting meds but it was explained to her that she needs to complete 4 more days and 5 and total. She was provided with a prescription for the medication and was instructed to take 1 in the morning and 1 in the evening. Patient was also scheduled for follow-up visit in 30 days with myself since she does not have a PCP, all of her routine medications will be reconciled so she can continue taking them at home. She was also counseled on the importance of abstaining from the use of illegal substances including marijuana and methamphetamine. Procedures Performed: none Care Plan Goals: Resume all routine medications including insulin as prescribed. Follow-up with Dr. Suero in 14 days. Recommendations to establish with a PCP was made. Results and Findings: Pending Mircobiology Results 07/04/19 15:08 Blood Blood Culture - Preliminary NO GROWTH 24 HOURS 07/04/19 14:45 Blood Blood Culture - Preliminary NO GROWTH 24 HOURS Lab Pending Results 07/04/19 13:43: Urine Color Yellow, Urine Appearance Clear, Urine pH 5.0, Ur Specific [place] >=1.030, Urine Protein 30 H, Urine Glucose (UA) >=1000 H, Urine Ketones 50, Urine Blood 50 H, Urine Nitrate Negative, Urine Bilirubin Negative, Prot Sulfosalicylic Acd 2+ H, Urine Urobilinogen Normal, Ur Leukocyte Esterase Negative, Urine RBC 0-5, Urine WBC 0-5, Ur Epithelial Cells 0-5, Urine Bacteria None seen, Urine Yeast Many - 3+ H, Urine Culture Comments Culture to follow 07/04/19 13:43: Urine Opiates Screen Negative, Barbiturate Screen Negative, Ur Phencyclidine Scrn Negative, Urine Amphetamine Negative, U Benzodiazepines Scrn Negative, Urine Cocaine Screen Negative, Urine Marijuana (THC) Positive H 07/04/19 13:55: Influenza Type A Ag Positive H, Influenza Type B Ag Negative 07/04/19 14:10: WBC 38.4 H, RBC 4.60, Hgb 14.0, Hct 45.0, MCV 97.8, MCH 30.4, MCHC 31.1 L, RDW 13.2, Plt Count 389, MPV 10.1, Neutrophils % (Manual) 64, Band Neuts % (Manual) 4 H, Lymphocytes % (Manual) 25, Monocytes % (Manual) 5, Neutrophils # (Manual) 24.6 H, Lymphocytes # (Manual) 9.6 H, Monocytes # (Manual) 1.9 H, Atypic/Reactive Lymphs 2, Platelet Estimate Normal, RBC Morphology Normal 07/04/19 14:10: Sodium 126 L, Plasma Sodium 139, Potassium 5.3 H D, Chloride 86 L, Carbon Dioxide Less than 5.0 L, Anion Gap 40.3 H, BUN 43 H D, Creatinine 2.25 H D, Est GFR (Non-Af Amer) 26 L D, BUN/Creatinine Ratio 19.1, Random Glucose 901 H, Calcium 9.5, Calcium Adj for Albumin 9.5, Total Bilirubin 0.6, AST 35, ALT 122 H, Alkaline Phosphatase 191 H, Total Protein 7.2, Albumin 3.6, Serum Ketones Positive - 20mg/dl H 07/04/19 15:31: pCO2 Less than 14.9 L*, pO2 121.5 H, HCO3 3.3 L, Total CO2 3.7 L, Base Excess -25.2 L, ABG pH 7.04 L*, ABG O2 Sat (Measured) 96.7 07/04/19 16:12: pCO2 Less than 14.9 L*, pO2 136.3 H, HCO3 4.0 L, Total CO2 4.4 L, Base Excess -23.0 L, ABG pH 7.12 L*, ABG O2 Sat (Measured) 97.9 07/04/19 17:38: Random Glucose 690 H 07/04/19 17:45: Sodium 133, Plasma Sodium 142, Potassium 4.8 H, Chloride 95 L, Carbon Dioxide 5.6 L, Anion Gap 37.2 H, BUN 40 H, Creatinine 1.95 H, Est GFR (Non-Af Amer) 31 L, BUN/Creatinine Ratio 20.5, Random Glucose 690 H, Calcium 8.4, Calcium Adj for Albumin 8.8, Total Bilirubin 0.5, AST 30, ALT 105 H, Alkaline Phosphatase 157, Total Protein 6.6, Albumin 3.1 L 07/04/19 19:00: Random Glucose 598 H 07/04/19 21:00: pCO2 19.8 L*, pO2 113.4 H, HCO3 9.1 L, Total CO2 9.7 L, Base Excess -15.4 L, ABG pH 7.28 L, ABG O2 Sat (Measured) 97.8 07/04/19 22:10: Sodium 138, Plasma Sodium 143 H, Potassium 3.8 D, Chloride 102, Carbon Dioxide 12.6 L, Anion Gap 27.2 H, BUN 35 H, Creatinine 1.72 H, Est GFR (Non-Af Amer) 35 L, BUN/Creatinine Ratio 20.3, Random Glucose 409 H D, Calcium 8.3, Calcium Adj for Albumin 8.7, Total Bilirubin 0.6, AST 26, ALT 100 H, Alkaline Phosphatase 145, Total Protein 6.5, Albumin 3.1 L 07/05/19 01:01: pCO2 25.1 L, pO2 75.4 L, HCO3 13.1 L, Total CO2 13.8 L, Base Excess -11.1 L, ABG pH 7.33 L, ABG O2 Sat (Measured) 94.6 07/05/19 02:25: Sodium 141, Plasma Sodium 143 H, Potassium 4.1, Chloride 106, Carbon Dioxide 18.8 L, Anion Gap 20.3 H, BUN 31 H, Creatinine 1.64 H, Est GFR (Non-Af Amer) 37 L, BUN/Creatinine Ratio 18.9, Random Glucose 206 H D, Calcium 7.8 L, Calcium Adj for Albumin 8.4, Total Bilirubin 0.3, AST 26, ALT 94 H, Alkaline Phosphatase 132, Total Protein 6.2, Albumin 2.9 L 07/05/19 05:05: pCO2 29.7 L, pO2 89.4, HCO3 17.1 L, Total CO2 18.0 L, Base Excess -6.9 L, ABG pH 7.38, ABG O2 Sat (Measured) 96.8 07/05/19 06:45: Sodium 140, Plasma Sodium 140, Potassium 4.0, Chloride 106, Carbon Dioxide 19.7 L, Anion Gap 18.3 H, BUN 29 H, Creatinine 1.50 H, Est GFR (Non-Af Amer) 42 L, BUN/Creatinine Ratio 19.3, Random Glucose 78 D, Calcium 7.9, Calcium Adj for Albumin 8.5, Total Bilirubin 0.3, AST 30, ALT 91 H, Alkaline Phosphatase 121, Total Protein 6.3, Albumin 2.8 L 07/05/19 09:15: pCO2 30.9 L, pO2 88.5, HCO3 18.0 L, Total CO2 18.9 L, Base Excess -6.0 L, ABG pH 7.38, ABG O2 Sat (Measured) 96.8 07/05/19 10:20: Sodium 139, Plasma Sodium 139, Potassium 3.9, Chloride 107 H, Carbon Dioxide 18.1 L, Anion Gap 17.8 H, BUN 28 H, Creatinine 1.35, Est GFR (Non-Af Amer) 47 L, BUN/Creatinine Ratio 20.7, Random Glucose 113 H D, Calcium 7.8 L, Calcium Adj for Albumin 8.4, Total Bilirubin 0.3, AST 30, ALT 86 H, Alkaline Phosphatase 113, Total Protein 6.0 L, Albumin 2.8 L 07/05/19 10:20: WBC 10.9 H D, RBC 3.73 L, Hgb 11.4 L, Hct 32.5 L, MCV 87.1, MCH 30.6, MCHC 35.1, RDW 12.8, Plt Count 269, MPV 9.4, Immature Gran % (Auto) 1.10 H, Immature Gran # (Auto) 0.12 H, Neutrophils % 75.0, Lymphocytes % 9.5 L, Monocytes % 13.7 H, Eosinophils % 0.4, Basophils % 0.3, Nucleated RBC % 0.0, Neutrophils # 8.2 H, Lymphocytes # 1.04 L, Monocytes # 1.5 H, Eosinophils # 0.0, Absolute Basophils 0.0 07/05/19 12:35: pCO2 32.1, pO2 90.5, HCO3 18.6 L, Total CO2 19.6, Base Excess - 5.6 L, ABG pH 7.38, ABG O2 Sat (Measured) 96.9 07/05/19 14:27: Sodium 140, Plasma Sodium 141, Potassium 3.9, Chloride 107 H, C arbon Dioxide 19.6 L, Anion Gap 17.3 H, BUN 26 H, Creatinine 1.33, Est GFR (Non- Af Amer) 48 L, BUN/Creatinine Ratio 19.5, Random Glucose 175 H D, Calcium 8.0, Calcium Adj for Albumin 8.8, Total Bilirubin 0.3, AST 30, ALT 79 H, Alkaline Phosphatase 99, Total Protein 5.7 L, Albumin 2.6 L 07/05/19 17:12: pCO2 31.5 L, pO2 85.7, HCO3 18.6 L, Total CO2 19.6, Base Excess -5.4 L, ABG pH 7.39, ABG O2 Sat (Measured) 96.5 07/05/19 18:27: Sodium 138, Plasma Sodium 140, Potassium 3.5, Chloride 104, Carbon Dioxide 20.5 L, Anion Gap 17.0 H, BUN 22, Creatinine 1.29, Est GFR (Non- Af Amer) 49 L, BUN/Creatinine Ratio 17.1, Random Glucose 198 H, Calcium 8.1, Calcium Adj for Albumin 8.7, Total Bilirubin 0.3, AST 31, ALT 79 H, Alkaline Phosphatase 106, Total Protein 6.2, Albumin 2.8 L 07/05/19 22:50: Sodium 138, Plasma Sodium 139, Potassium 3.3 L, Chloride 106, Carbon Dioxide 21.6 L, Anion Gap 13.7, BUN 19, Creatinine 1.12, Est GFR (Non-Af Amer) 58 L, BUN/Creatinine Ratio 17.0, Random Glucose 157 H, Calcium 7.9, Calcium Adj for Albumin 8.7, Total Bilirubin 0.2, AST 28, ALT 73 H, Alkaline Phosphatase 96, Total Protein 5.7 L, Albumin 2.6 L 07/06/19 02:30: Sodium 138, Plasma Sodium 139, Potassium 3.4, Chloride 106, Carbon Dioxide 22.2 L, Anion Gap 13.2, BUN 16, Creatinine 1.03, Est GFR (Non-Af Amer) 64, BUN/Creatinine Ratio 15.5, Random Glucose 173 H, Calcium 7.3 L, Calcium Adj for Albumin 8.2 L, Total Bilirubin 0.2, AST 27, ALT 68 H, Alkaline Phosphatase 99, Total Protein 5.5 L, Albumin 2.5 L 07/06/19 06:30: Sodium 138, Plasma Sodium 140, Potassium 3.9, Chloride 107 H, Carbon Dioxide 21.2 L, Anion Gap 13.7, BUN 13, Creatinine 0.95, Est GFR (Non-Af Amer) 70, BUN/Creatinine Ratio 13.7, Random Glucose 236 H D, Calcium 7.2 L, Calcium Adj for Albumin 8.2 L, Total Bilirubin 0.3, AST 24, ALT 61, Alkaline Phosphatase 83, Total Protein 5.1 L, Albumin 2.3 L 07/06/19 06:30: WBC 6.8 D, RBC 3.25 L, Hgb 9.8 L, Hct 28.5 L, MCV 87.7, MCH 30.2, MCHC 34.4, RDW 13.5, Plt Count 200, MPV 9.4, Immature Gran % (Auto) 0.60 H, Immature Gran # (Auto) 0.04 H, Neutrophils % 63.2, Lymphocytes % 27.5, Monocytes % 8.2, Eosinophils % 0.4, Basophils % 0.1, Nucleated RBC % 0.0, Neutrophils # 4.3, Lymphocytes # 1.87, Monocytes # 0.6, Eosinophils # 0.0, Absolute Basophils 0.0 Discharge Location: Home Disposition: Home self-care Condition: Stable Face to Face Encounter completed per CMS Guidelines: No Discharge Activity: Activity as tolerated Discharge Diet: Consistent carbs Prescriptions (Any new or edited meds): Syringe-Needle,Insulin,0.5 ml [Insulin Syringe] 1 [facility] QID #100 disp.syrin Transmission Status: Pending to [facility] Levothyroxine Sodium [Synthroid] 100 mcg PO DAILY #30 tab Transmission Status: Pending to [facility] Oseltamivir Phosphate [Tamiflu] 75 mg PO BID 4 Days #8 cap Transmission Status: Pending to [facility] Complete Home Medications List: Complete Home Medication List: Blood Sugar Diagnostic [Freestyle Lite Test Strip] 1 [facility] TID #100 strip 03/17/19 FLUoxetine HCL [Prozac] 40 mg PO DAILY #30 cap 03/17/19 Insulin Glargine,Hum.rec.anlog [Basaglar Kwikmalorie U-100] 30 unit SUBCUT DAILY #3 03/17/19 Insulin Lispro [Humalog] 8 unit SUBCUT AC #3 vial 03/17/19 blood sugar diagnostic See Rx Instructions .ROUTE .MEDSUPPLY #100 ea 04/08/19 Levothyroxine Sodium [Synthroid] 100 mcg PO DAILY #30 tab 07/06/19 Oseltamivir Phosphate [Tamiflu] 75 mg PO BID 4 Days #8 cap 07/06/19 Syringe-Needle,Insulin,0.5 ml [Insulin Syringe] 1 [facility] QID #100 disp.syrin 07/06/19
== END 2019-07-06 09:35 | disposition home or self-care (01) | DRG 639 ==
LOC: ER 13:22 → MS 16:15 → SCU 18:52
PROVIDERS: ADMIT Family Medicine; ATTEND Family Medicine
DX: Z79.4 Long term (current) use of insulin; E03.9 Hypothyroidism, unspecified; E10.65 Type 1 diabetes mellitus with hyperglycemia; R41.82 Altered mental status, unspecified; J10.1 Influenza due to other identified influenza virus with other respiratory manifestations; E10.10 Type 1 diabetes mellitus with ketoacidosis without coma
CPT/HCPCS: 36415; 36600; 71010; 71045; 80053; 80307; 81001; 82009; 82803; 82947; 85025; 87040; 87086; 87106; 87400; 87449; 93005; 99285